=== PATIENT | male | born 1970 | race Caucasian/White ===

== ENCOUNTER → 2020-06-28 10:25 | Outpatient (BNVA) | payer OTHER, SELFPAY | PROVIDERS: PCP Hospitalist; Referring Provider Hospitalist; Visit Provider Orthopaedic Surgery | DX: M75.01 Adhesive capsulitis of right shoulder (principal) | CPT/HCPCS: 99212 ==

== ENCOUNTER 2020-07-13 10:00 | Outpatient (RCR) | payer OTHER, SELFPAY ==
--- NOTE | 2020-05-24 08:25 | MHC.PT.OD ---
[facility] [place] Office [place] Office [place] Office [address] Krystle Garcia [address] [phone] F: [phone] F: [phone] F: [phone] F: [phone] Physical Therapy Daily Note Diagnosis: Date of Surgery: Date of Evaluation: 03/22/20 Treatments to Date: 18 Cancellations to Date: No Shows to Date: Authorized Visits: 99 Insurance End Date: Precautions/ Contraindications:ADHESIVE CAPSULITIS Subjective: PATIENT REPORTS HAVING SORENESS AND FATIGUE TO RIGHT SHOULDER. PATIENT REPORTS INCREASED STIFFNESS TO RIGHT IN THE MORNING. Pain Score: 8 Pain Location: RIGHT SHOULDER Objective Flowsheet: Tests & Measures HYPOMBILITY TO RIGHT SHOULDER Exercises UBE (MODERATE, X10 MINUTES) PB WALK UPS 4 X 5 AT WALL RESISTED BAND ROWS DOUBLE AND SINGLE (YELLOW BAND 3X10) STANDING PULL DOWN (YELLOW BAND 6X5) RESISTED TRICEPS EXTENSIONS ( YELLOW BAND 6X5) PROM SHOULDER ALL DRIECTION WITH END RANGE STRETCH S/L ER 6X5 RIGHT GLENOHUMERAL JOINT MOBILIZATION GRADE 3-4 SUSTAIN AND OSC. INFERIOR GLIDES, A/P, P/A GRADE 3 SCAPULAR MOBS GRADE 2 A/P SUPINE STM LAT DORSI/ TERES GROUP Modalities Assessment: PATIENT PROGRESSED WITH RESISTED BAND EXERCISES TO INCREASED RECRUITMENT OF RIGHT SHOULDER GIRDLE THROUGH OUT NEW ROM. CONTINUATION WITH MANUAL THERAPY WARRANTED TO REDUCE ADHESION FORMATION AND MAINTAIN HUMERAL HEAD GLIDE. REVIEW OF STM FOR HEP WITH SPOUSES HELP. PATIENT TO CONTINUE WITH SKILLED PT INTERVENTION FOR 2X WEEK X 8 WEEKS TO ADDRESS INCREASE SHOULDER BIOMECHANICS, INCREASED AROM, IMPROVE ON STABLITY OF SHOULDER GIRDLE AND RETURN TO FUNCTIONAL MOVEMENT AND WORK OF RIGHT SHOULDER. PT Plan: CONTINUE WITH PROGRESSION OF JONT MOBILIZATION AND MANUAL THERAPY TO DECREASE ADHESION AND INCREASE FUNCTIONAL USE OF RIGHT UE WITH ADL'S. TE, MICHAEL, MAN, MODALITIES, DYNAMIC STABILITY, STM Discharge Today? No Short Term Goals: 1. DECREASE SLEEP DISTURBANCES BY 50% 2. INDEPENDENT WITH HEP 3.DECREASE SHOULDER GUADING BY 50% Reiki Practitioner Goals: 1. INCREASE MOBILITY TO RIGHT SHOULDER BY 40 DEGREES ALL DIRECTION 2.DECREASE PAIN TO 3/10 3. INCREASE RIGHT MMT TO 4/5 TO ASSIST WITH ADL'S 4. DECREASE MM SPASMS BY 75% TO RIGHT SHOULDER 5. INCREASE TOLERANCE TO LIFTING AND CARRYING TO 10 LBS
--- NOTE | 2020-07-13 11:54 | MHC.PT.OD ---
[facility] [place] Office [place] Office [place] Office [address] Krystle Garcia [address] [phone] F: [phone] F: [phone] F: [phone] F: [phone] Physical Therapy Daily Note Diagnosis: Bursitis of R shoulder Date of Surgery: Date of Evaluation: 03/22/20 Treatments to Date: 28 Cancellations to Date: 0 No Shows to Date: 0 Authorized Visits: 99 Insurance End Date: Precautions/ Contraindications:ADHESIVE CAPSULITIS Subjective: Pt noted to appear much more anxious today, verbalizing history of panic order; reports ongoing issues with constipation, resolved yesterday; reports wants a regular pattern expresses R shoulder is moving more than before, I can actually lift my arm. Verbalizing confidence with ability to complete HEP. Pain Score: 6 Pain Location: RIGHT SHOULDER Objective Flowsheet: Tests & Measures Flexion AROM 120, PROM 130 degrees Abduction 105 degrees, PROM 110 ER 35 degrees PROM 45 degrees IR 50 PROM degrees AARom IR standing L4 Exercises Krank cycle x 10 minutes backwards Reviewed HEP Issued blue band for home ROWS/ext x 15R each, standing AAROM cane flexion, AAROM cane scaption, AAROM cane ER, AAROM IR cane x 5R each. Extensive time spent with patient reviewing all of his previously issued HEP sheets; addressing questions pt had with home program. PROM end range all planes, Posterior/inferior GH mobs grade 3 sustained to tolerance Issued updated HEP sheets for patient to fill in gaps of HEP including: AAROM flexion with aide of opposite hand in supine, AAROM flexion via wall slides, AAROM flexion via table slides flex/scaption, AAROM cane scaption, AAROM cane ER, AAROM IR, SL open books stretch, threading needle stretch, ROWS/ext with TB, scap retraction, alternating UE flexion when walking Reviewed and addressed specific patient questions with program Modalities Assessment: Pt started physical therapy back on 03/22/2020, receiving 28 visits of therapy since that time. Sloan is expressing overall improvement in shoulder mobility since start of care. He verbalizes improved ability to lie on R shoulder and complete self care. He expresses increased emotional stressors in regards to living situation with 's mother which appears to be contributing factors of his anxiety and hx of panic disorder (he states). He has been issued a written HEP sheet and exhibits good>fair carryover. He has begun to plateau in his progress in regards to his ROM, he was seen by Dr. Cm who advised him to finish up this physical therapy. Although his ROM is not yet symmetrical to his opposite shoulder, he is able to navigate his ADLS and hygiene with better movement and is now able to sleep on his shoulder. He has weaned from use of NSAIDS as he also verbalizes hx gastritis and IBS which he feel medss have been exacerbating his bowel sx. He is scheduled to see his PCP Jigna Nevarez NP for routine appt on 07/27/2020. I do not believe he has a follow up with Dr. Cm in the future. He was educated/encouraged to phone therapy clinic with questions or concerns for HEP. Follow up with Jigna Nevarez NP on 07/27/2020. D/C Sloan to I HEP for his treatment of frozen shoulder at this time. He has realistic expectations of his recovery and was encouraged to stick with diligent written program daily (he presents with written HEP folder today and did not have questions as we reviewed program at length last session). He was encouraged to reach out to MD if he feels his shoulder mobility starts to regress. PT Plan: D/C to I HEP. Discharge Today? No Short Term Goals: 1. DECREASE SLEEP DISTURBANCES BY 50% related to shoulder (met, now able to sleep in SL) 2. INDEPENDENT WITH HEP 3.DECREASE SHOULDER GUADING BY 50% (met) Senior Ssis Developer Goals: 1. INCREASE MOBILITY TO RIGHT SHOULDER BY 40 see reeval DEGREES ALL DIRECTION 2.DECREASE PAIN TO 3/10 3. INCREASE RIGHT MMT TO 4/5 TO ASSIST WITH ADL'S 4. DECREASE MM SPASMS BY 75% TO RIGHT SHOULDER 5. INCREASE TOLERANCE TO LIFTING AND CARRYING TO 10 LBS Electronically signed by: Christiana Sahni, PT, DPT
== END 2020-09-16 09:31 | disposition other institution (70) ==
LOC: HO.PTWFD 10:00
PROVIDERS: PCP Hospitalist; Visit Provider Orthopaedic Surgery
DX: M75.51 Bursitis of right shoulder (principal)
CPT/HCPCS: 97110; 97140

== ENCOUNTER 2021-05-09 11:17 | Outpatient (REF) | payer OTHER, SELFPAY ==
[2021-05-09 13:54] LABS: Hematocrit 43.4 % (42-52); Mean Corpuscular HGB Conc 34.6 g/dl (31.0-36.0); Mean Corpuscular Hemoglobin 30.7 pg (27.0-33.0); Mean Corpuscular Volume 88.8 fL (80-98); Mean Platelet Volume 10.2 fL (9.4-12.4); Platelet Count 257 X10*3/uL (160-400); Red Blood Count 4.89 X10*6/uL (4.60-5.80); Red Cell Distribution Width 12.1 % (11.0-16.0); White Blood Count 6.7 X10*3/uL (4.8-10.8)
[2021-05-09 14:08] LABS: Appearance Urine CLEAR; Color Urine YELLOW; Glucose Urine UA NEG (NEG); Leukocyte Esterase Urine NEG (NEG); Nitrite Urine NEG (NEG); Urine Blood NEG (NEG); Urine Ketones NEG (NEG); Urine Protein NEG (NEG-TRACE)
[2021-05-09 15:02] LABS: Alanine Aminotransferase 44 U/L (0-40); Albumin Level 4.2 g/dL (3.5-5.0); Alkaline Phosphatase 108 U/L (39-117); Anion Gap 12 (12-20); Aspartate Amino Transferase 23 U/L (5-37); Bilirubin Total 0.6 mg/dL (0.0-1.0); Blood Urea Nitrogen 11 mg/dL (9-16); Calcium 9.1 mg/dL (8.4-10.2); Carbon Dioxide 28 mmol/L (22-29); Chloride 104 mmol/L (96-108); Cholesterol 209 mg/dL; Estimated Glomerular Filt Rate > 60; Glucose Fasting 92 mg/dL (60-99); HDL Cholesterol 42 mg/dL; LDL Cholesterol Calculated 149 mg/dl; Potassium 3.9 mmol/L (3.3-5.1); Sodium 140 mmol/L (135-145); Total Protein 7.1 g/dL (6.5-8.0); Triglycerides 93 mg/dL
[2021-05-09 15:04] LABS: Mucus Urine TRACE /LPF; RBC Urine 0 /HPF (0); Squamous Epithelial Cell Urine TRACE /LPF; WBC Urine 0 /HPF (0-4)
[2021-05-09 15:48] LABS: Prostate Specific Antigen Scr 0.27 ng/mL (<0.05-4.0)
== END 2021-05-09 11:18 | disposition home or self-care (01) ==
LOC: HO.HMGCLDS 11:17
PROVIDERS: PCP Internal Medicine; Visit Provider Internal Medicine
DX: Z00.00 Encounter for general adult medical examination without abnormal findings (principal); Z12.5 Encounter for screening for malignant neoplasm of prostate; F41.9 Anxiety disorder, unspecified
CPT/HCPCS: 36415; 80053; 80061; 81001; 84153; 85027

== ENCOUNTER → 2021-09-12 14:18 | Outpatient (BNVA) | payer OTHER, SELFPAY | PROVIDERS: PCP Internal Medicine; Referring Provider Internal Medicine; Visit Provider Nurse Practitioner Family | DX: Z12.11 Encounter for screening for malignant neoplasm of colon (principal); K21.9 Gastro-esophageal reflux disease without esophagitis | CPT/HCPCS: 99202 ==

== ENCOUNTER 2021-10-25 22:32 | Emergency (ER) | payer OTHER, SELFPAY ==
--- NOTE | ~2021-10-25 | CT_ITS ---
EXAMINATION: CT ABDOMEN AND PELVIS WITH CONTRAST CLINICAL INFORMATION: Mid abdominal pain, nausea/vomiting COMPARISON: None TECHNIQUE: Multidetector volumetric images were obtained from the superior aspect of the liver through the pubic symphysis following administration 85 mL of Omnipaque 350 intravenous contrast. Sagittal and coronal reformatted images were obtained on the technologist's workstation. Oral contrast: No This CT examination was performed using dose optimization techniques as appropriate, variously including the following: *Automated exposure control *Adjustment of mA and/or kV according to patient size (this includes techniques or standardized protocols for targeted exams where dose is matched to indication/reason for exam; i.e. extremities or head) *Use of iterative reconstruction technique DLP: 631 mGy-cm FINDINGS: LUNG BASES: The visualized lung bases are unremarkable. LIVER, GALLBLADDER, AND BILIARY TREE: The liver is normal in size, shape, and attenuation. No focal hepatic lesion or biliary ductal dilatation is present. The gallbladder is unremarkable with no evidence of radiopaque gallstones, gallbladder wall thickening, or obvious pericholecystic inflammatory changes. PANCREAS: Unremarkable. SPLEEN: Unremarkable. ADRENAL GLANDS: Unremarkable. KIDNEYS AND URETERS: Bilateral nephrograms are symmetric. No hydronephrosis or obstructing calculus identified. BLADDER: Unremarkable. GASTROINTESTINAL TRACT: No evidence of bowel obstruction or significant wall thickening. The appendix is unremarkable. No free fluid or free air is seen. ABDOMINAL WALL: No significant hernia is appreciated. LYMPH NODES: Normal. VASCULAR: Unremarkable. PELVIC VISCERA: Unremarkable. OSSEOUS STRUCTURES: Multilevel endplate osteophytes are present in the lower thoracic and upper lumbar spine. CT/CT abdomen pelvis w con IMPRESSION: No acute findings identified in the abdomen/pelvis. Fleischner guidelines were followed.
[2021-10-25 23:28] VITALS: BP 116/80; PULSE 130; RESP 22; TEMP 36.9; O2SAT 95; BMI 26.6
[2021-10-25] MEDS: Ondansetron ODT 4 MG TAB.RAPDIS TRANSLINGU (23:44)
[2021-10-25 23:52] LABS: Basophils Percent Auto 0.4 % (0-2); Eosinophils Percent Auto 0.2 % (0-4); Hematocrit 45.4 % (42.0-52.0); Hemoglobin 15.4 g/dl (14.0-18.0); Imm Gran Abs Auto 0.03 X10*3/uL (0.00-0.03); Imm Gran Pct Auto 0.3 % (0.0-0.4); Lymphocytes Absolute Auto 0.5 X10*3/uL (1.2-4.9); Lymphocytes Percent Auto 5.1 % (20-40); MANUAL DIFF FLAG NO; Mean Corpuscular HGB Conc 33.9 g/dl (31.0-36.0); Mean Corpuscular Hemoglobin 29.8 pg (27.0-33.0); Mean Corpuscular Volume 87.8 fL (80.0-98.0); Mean Platelet Volume 9.2 fL (9.4-12.4); Monocytes Absolute Auto 0.7 X10*3/uL (0.1-1.2); Monocytes Percent Auto 6.5 % (2-11); Neutrophils Absolute Auto 9.3 x10*3/uL (2.0-8.3); Neutrophils Percent Auto 87.5 % (45-73); Platelet Count 201 X10*3/uL (160-400); Red Blood Count 5.17 X10*6/uL (4.60-5.80); White Blood Count 10.7 X10*3/uL (4.8-10.8)
--- NOTE | 2021-10-26 00:25 | ECG_ITS ---
Test Reason : TACHYCARDIA Blood Pressure : / mmHG Vent. Rate : 109 BPM Atrial Rate : 109 BPM P-R Int : 156 ms QRS Dur : 074 ms QT Int : 334 ms P-R-T Axes : 046 081 031 degrees QTc Int : 449 ms Sinus tachycardia Otherwise normal ECG No previous ECGs available Referred By: Generic ED Physician Electronically Signed By:PARVIN GARNER MD
[2021-10-26 00:26] LABS: Alanine Aminotransferase 57 U/L (0-40); Albumin Level 4.2 g/dL (3.5-5.0); Alkaline Phosphatase 106 U/L (39-117); Anion Gap 12 (12-20); Aspartate Amino Transferase 38 U/L (5-37); Bilirubin Direct 0.4 mg/dL (0.0-0.5); Bilirubin Total 1.2 mg/dL (0.0-1.0); Blood Urea Nitrogen 19 mg/dL (9-16); Calcium 9.2 mg/dL (8.4-10.2); Carbon Dioxide 24 mmol/L (22-29); Chloride 106 mmol/L (96-108); Creatinine Clr Calc Pharmacy 122.2; Estimated Glomerular Filt Rate > 60; Glucose Random 127 mg/dL (60-115); Lipase 17 U/L (8-78); Potassium 4.2 mmol/L (3.3-5.1); Sodium 138 mmol/L (135-145); Total Protein 7.5 g/dL (6.5-8.0)
[2021-10-26 00:58] VITALS: BP 116/76; PULSE 106; RESP 20; O2SAT 98
[2021-10-26 01:31] LABS: COVID-19 Test Negative (Negative)
[2021-10-26 01:41] LABS: Appearance Urine CLEAR; Color Urine YELLOW; Glucose Urine UA NEG (NEG); Leukocyte Esterase Urine NEG (NEG); Nitrite Urine NEG (NEG); Specific Gravity - Urine 1.025 (1.005-1.025); UACC Culture Trigger NO; Urine Blood TRACE (NEG); Urine Ketones 40 MG/DL (NEG); Urine Protein NEG (NEG-TRACE)
[2021-10-26 02:09] LABS: Bacteria Urine 1+ /LPF; Mucus Urine 2+ /LPF; Squamous Epithelial Cell Urine 1+ /LPF
--- NOTE | 2021-10-26 02:19 | ED.NAVMDI ---
HPI - Nausea/Vomiting/Diarrhea General Chief complaint: Nausea/Vomiting/Diarrhea Stated complaint: active vomiting, abd pain, difficulty breathing Time Seen by Provider: 10/26/21 02:19 Source: patient Mode of arrival: ambulatory History of Present Illness HPI Narrative: 51-year-old male who presents with multiple episodes of nausea and vomiting after eating dinner with his and he states that she ate same thing. Otherwise, he denies any fever, chills, diarrhea, shortness of breath, chest pain/palpitations and states that after the vomiting started he experience some mid abdominal discomfort. Related Data Home Medications Medication Instructions Recorded Confirmed ibuprofen 800 mg tablet 800 mg PO TID 05/25/20 05/09/21 Previous Rx's Medication Instructions Recorded fluticasone propionate 50 1 spray INTRANASAL DAILY 30 Days 05/09/21 mcg/actuation nasal #16 g spray,suspension paroxetine HCl 20 mg tablet (Paxil) 20 mg PO DAILY #90 tab 05/09/21 bisacodyl 5 mg tablet,delayed 10 mg PO ONCE 1 Days #2 tab 09/12/21 release (Dulcolax (bisacodyl)) polyethylene glycol 3350 17 238 g PO ONCE #238 g 09/12/21 gram/dose oral powder (Miralax) pantoprazole 40 mg tablet,delayed 40 mg PO DAILY 90 Days #90 tab 09/27/21 release ondansetron 4 mg disintegrating 4 mg PO Q8H PRN #7 tab 10/26/21 tablet sucralfate 100 mg/mL oral 10 ml PO BID #420 ml 10/26/21 suspension (Carafate) Allergies Allergy/AdvReac Type Severity Reaction Status Date / Time No Known Allergies Allergy Verified 09/12/21 14:30 [No Known Allergies*] Review of Systems Review of Systems: Pertinent positives and negatives as stated in HPI 10 point review of systems is otherwise negative. [facility] Past Medical History Source: nursing notes reviewed Medical History Adhesive capsulitis of right shoulder Annual physical exam Anxiety Dyslexia Seasonal allergies Surgical History History of endoscopy Family History Family History Father NORM (obstructive sleep apnea) Mother Diabetes Family/Other Cancer Maternal Aunt Breast cancer Social History Social History Household Members Other:: , disable learing disabilty Housing: House Unable to assess alcohol history related to: Unknown Alcohol intake: never Patient Tobacco Use Status: Never used Tobacco e-Cigarette/Vaping Use: Never Used Advance Directives: No Advance Directives Information Provided: Yes Current occupational status: unemployed Current occupation: Right Handed Physical Exam Vital Signs: Vital Signs: Last Vital Signs Temp 98.5 F 10/25/21 23:28 Pulse 107 H 10/26/21 04:05 Resp 18 10/26/21 04:05 BP 118/79 10/26/21 04:05 Pulse Ox 97 10/26/21 04:05 BMI result Body Mass Index 26.6 VITAL SIGNS: Reviewed. GENERAL: Well developed, well nourished, in no acute distress. HEAD: Normocephalic/atraumatic EYES: PERRLA, EOMI EARS: Ext canals without abnormality OROPHARYNX: no oral lesions noted, posterior pharynx clear LUNGS: Normal breath sounds. No adventitious sounds or accessory muscle use. SpO2<97> CARDIOVASCULAR: Regular rate and rhythm without noted murmurs ABDOMEN: Soft, mild tenderness to palpation at mid abdomen without rebound non-distended with bowel sounds. MUSCULOSKELETAL: No tenderness, deformities, or effusions noted on gross inspection. EXTREMITIES: No cyanosis, clubbing or edema. SKIN: Inspection of the skin reveals no rashes NEUROLOGIC: Alert and oriented x 4. Strength and sensation to light touch were grossly intact x 4. Course Course Course Narrative: 51-year-old male with history and clinical presentation consistent with possible gastritis and/or mild food contamination. Patient received antiemetic as well as a GI cocktail afterwards and on review of all investigations there are no acute findings to better explain patient's presentation. On re-evaluation he is currently asymptomatic and able to tolerate water at this time. I reviewed all results and findings with him at bedside and he is otherwise stable for discharge to home. MDM - Nausea/Vomiting/Diarrhea Lab Data Result diagrams: 10/25/21 23:42 10/25/21 23:42 Labs: Lab Results 10/25/21 10/25/21 10/26/21 Range/Units 23:42 23:42 01:04 WBC 10.7 (4.8-10.8) X10*3/uL RBC 5.17 (4.60-5.80) X10*6/uL Hgb 15.4 (14.0-18.0) g/dl Hct 45.4 (42.0-52.0) % MCV 87.8 (80.0-98.0) fL MCH 29.8 (27.0-33.0) pg MCHC 33.9 (31.0-36.0) g/dl RDW 12.0 (11.0-16.0) % Plt Count 201 (160-400) X10*3/uL MPV 9.2 L (9.4-12.4) fL Immature Gran % (Auto) 0.3 (0.0-0.4) % Neut % (Auto) 87.5 H (45-73) % Lymph % (Auto) 5.1 L (20-40) % [place] % (Auto) 6.5 (2-11) % Eos % (Auto) 0.2 (0-4) % Baso % (Auto) 0.4 (0-2) % Lymph # (Auto) 0.5 L (1.2-4.9) X10*3/uL [place] # (Auto) 0.7 (0.1-1.2) X10*3/uL Eos # (Auto) 0.0 (0.0-0.4) X10*3/uL Baso # (Auto) 0.0 (0.0-0.2) X10*3/uL Abs Immat Gran (auto) 0.03 (0.00-0.03) X10*3/uL Absolute Neuts (auto) 9.3 H (2.0-8.3) x10*3/uL Absolute Nucleated RBC 0.000 (0.0-0.012) X10*3/uL Nucleated RBC % (auto) 0.0 (0.0-0.2) /100WBC Sodium 138 (135-145) mmol/L Potassium 4.2 (3.3-5.1) mmol/L Chloride 106 (96-108) mmol/L Carbon Dioxide 24 (22-29) mmol/L Anion Gap 12 (12-20) BUN 19 H (9-16) mg/dL Creatinine 0.77 (0.5-1.4) mg/dL Estim Creat Clear Calc 122.2 Estimated GFR > 60 Random Glucose 127 H (60-115) mg/dL Calcium 9.2 (8.4-10.2) mg/dL Total Bilirubin 1.2 H (0.0-1.0) mg/dL Direct Bilirubin 0.4 (0.0-0.5) mg/dL AST 38 H D (5-37) U/L ALT 57 H (0-40) U/L Alkaline Phosphatase 106 (39-117) U/L Total Protein 7.5 (6.5-8.0) g/dL Albumin 4.2 (3.5-5.0) g/dL Lipase 17 (8-78) U/L Urine Color Urine Appearance Urine pH (5.0-8.0) Ur Specific [place] (1.005-1.025) Urine Protein (NEG-TRACE) MG/DL Urine Glucose (UA) (NEG) MG/DL Urine Ketones (NEG) MG/DL Urine Blood (NEG) Urine Nitrite (NEG) Ur Leukocyte Esterase (NEG) Urine RBC (0) /HPF Urine WBC (0-4) /HPF Ur Squamous Epith Cells /LPF Urine Bacteria /LPF Urine Mucus /LPF COVID-19 (AI) Negative (Negative) COVID-19 Clin Com See Note 10/26/21 Range/Units 01:35 WBC (4.8-10.8) X10*3/uL RBC (4.60-5.80) X10*6/uL Hgb (14.0-18.0) g/dl Hct (42.0-52.0) % MCV (80.0-98.0) fL MCH (27.0-33.0) pg MCHC (31.0-36.0) g/dl RDW (11.0-16.0) % Plt Count (160-400) X10*3/uL MPV (9.4-12.4) fL Immature Gran % (Auto) (0.0-0.4) % Neut % (Auto) (45-73) % Lymph % (Auto) (20-40) % [place] % (Auto) (2-11) % Eos % (Auto) (0-4) % Baso % (Auto) (0-2) % Lymph # (Auto) (1.2-4.9) X10*3/uL [place] # (Auto) (0.1-1.2) X10*3/uL Eos # (Auto) (0.0-0.4) X10*3/uL Baso # (Auto) (0.0-0.2) X10*3/uL Abs Immat Gran (auto) (0.00-0.03) X10*3/uL Absolute Neuts (auto) (2.0-8.3) x10*3/uL Absolute Nucleated RBC (0.0-0.012) X10*3/uL Nucleated RBC % (auto) (0.0-0.2) /100WBC Sodium (135-145) mmol/L Potassium (3.3-5.1) mmol/L Chloride (96-108) mmol/L Carbon Dioxide (22-29) mmol/L Anion Gap (12-20) BUN (9-16) mg/dL Creatinine (0.5-1.4) mg/dL Estim Creat Clear Calc Estimated GFR Random Glucose (60-115) mg/dL Calcium (8.4-10.2) mg/dL Total Bilirubin (0.0-1.0) mg/dL Direct Bilirubin (0.0-0.5) mg/dL AST (5-37) U/L ALT (0-40) U/L Alkaline Phosphatase (39-117) U/L Total Protein (6.5-8.0) g/dL Albumin (3.5-5.0) g/dL Lipase (8-78) U/L Urine Color YELLOW Urine Appearance CLEAR Urine pH 6.0 (5.0-8.0) Ur Specific [place] 1.025 (1.005-1.025) Urine Protein NEG (NEG-TRACE) MG/DL Urine Glucose (UA) NEG (NEG) MG/DL Urine Ketones 40 (NEG) MG/DL Urine Blood TRACE (NEG) Urine Nitrite NEG (NEG) Ur Leukocyte Esterase NEG (NEG) Urine RBC 1-4 (0) /HPF Urine WBC 1-4 (0-4) /HPF Ur Squamous Epith Cells 1+ /LPF Urine Bacteria 1+ /LPF Urine Mucus 2+ /LPF COVID-19 (AI) (Negative) COVID-19 Clin Com Discharge Plan Discharge Clinical Impression: GERD without esophagitis Patient Disposition: Home, Self-Care Instructions: Diet for Stomach Ulcers and Gastritis (ED), Gastroesophageal Reflux Disease (ED) Additional Instructions: 1. Resume all home medications as prescribed. Recommend that you avoid any ibuprofen/Motrin at this time as it may irritate your stomach further. 2. You have been provided with a prescription for medication to sooth your stomach as well as medication to control your nausea. 3. When possible please follow-up with your primary care provider. Return to the ER for worsening symptoms. Prescriptions: New sucralfate [Carafate] 100 mg/mL suspension 10 ml PO BID Qty: 420 0RF ondansetron 4 mg tablet,disintegrating 4 mg PO Q8H PRN (Reason: nausea and vomiting) Qty: 7 0RF No Action pantoprazole 40 mg tablet,delayed release (DR/EC) 40 mg PO DAILY 90 Days Qty: 90 2RF ibuprofen 800 mg tablet 800 mg PO TID 0RF paroxetine HCl [Paxil] 20 mg tablet 20 mg PO DAILY Qty: 90 0RF fluticasone propionate 50 mcg/actuation spray,suspension 1 spray intranasal DAILY 30 Days Qty: 16 3RF Rx Instructions: administer into each nostril bisacodyl [Dulcolax (bisacodyl)] 5 mg tablet,delayed release (DR/EC) 10 mg PO ONCE 1 Days Qty: 2 0RF Rx Instructions: take 2 tabs at noon the day before your colonoscopy polyethylene glycol 3350 [Miralax] 17 gram/dose powder 238 g PO ONCE Qty: 238 0RF Rx Instructions: As directed by gastroenterology department at [facility]
--- NOTE | 2021-10-26 02:43 | PC.NURSE ---
Pt alert and oriented x4, calm and cooperative. Pt states nausea intermittently, and reflux feeling. Pt remains NPO. Resting in stretcher at this time, will continue to monitor.
[2021-10-26] MEDS: iohexoL 350 MG/ML 100 ML INFUS..BTL 85 ML IV (03:17)
[2021-10-26] MEDS: Magnesium Hydrox/Alum Hydrox 30 ML ORAL.SUSP PO (04:04)
[2021-10-26] MEDS: Lidocaine HCl Viscous 2 % 15 ML SOLUTION 10 ML MUCOUS MEM (04:04)
[2021-10-26 04:05] VITALS: BP 118/79; PULSE 107; RESP 18; O2SAT 97
--- NOTE | 2021-10-26 04:10 | PC.NURSE ---
Pt medicated per MAR Pt tolerating well Will continue to monitor
--- NOTE | 2021-10-26 04:44 | PC.NURSE ---
Pt given water Pt tolerating well No vomiting noted Will continue to monitor
[2021-10-26] MEDS: Sucralfate Oral Suspension 1 GM/10 ML ORAL.SUSP PO (04:59)
== END 2021-10-26 05:13 | disposition home or self-care (01) ==
PROVIDERS: Emergency Provider Student in an Organized Health Care Education/Training Program
DX: K21.9 Gastro-esophageal reflux disease without esophagitis (principal); Z20.822 Contact with and (suspected) exposure to COVID-19; R11.2 Nausea with vomiting, unspecified
CPT/HCPCS: 36415; 74177; 80048; 80076; 81001; 83690; 85025; 87635; 93005; 99284; Q9967

== ENCOUNTER 2021-12-14 13:51 | Emergency (ER) | payer OTHER, SELFPAY ==
--- NOTE | 2021-12-14 | ECG_ITS ---
Test Reason : abnormal ekg Blood Pressure : / mmHG Vent. Rate : 113 BPM Atrial Rate : 113 BPM P-R Int : 142 ms QRS Dur : 082 ms QT Int : 314 ms P-R-T Axes : 048 079 023 degrees QTc Int : 430 ms Sinus tachycardia Otherwise normal ECG When compared with ECG of 26-OCT-2021 00:50, No significant change was found Referred By: Generic ED Physician Electronically Signed By:JEANETH TITUS
--- NOTE | ~2021-12-14 | XR_ITS ---
EXAMINATION: XR CHEST CLINICAL INFORMATION: Cough. COMPARISON: Chest radiograph dated from 05/05/2017. TECHNIQUE: 2 views of the chest were obtained. FINDINGS: Stable appearance of the cardiomediastinal silhouette. Increased interstitial markings. No focal airspace opacities, pleural effusions or pneumothorax. No acute osseous abnormalities. XR/XR chest 2V IMPRESSION: Nonspecific interstitial thickening which could be associated with asthma, bronchitis, reactive airways disease or atypical infections.
[2021-12-14 13:54] VITALS: BP 128/75; PULSE 120; RESP 18; TEMP 37.7; O2SAT 99; BMI 25.1
[2021-12-14 14:16] LABS: MANUAL DIFF FLAG NO
[2021-12-14 14:30] LABS: Anion Gap 11 (12-20); Blood Urea Nitrogen 11 mg/dL (9-16); Calcium 9.1 mg/dL (8.4-10.2); Carbon Dioxide 26 mmol/L (22-29); Chloride 103 mmol/L (96-108); Creatinine Clr Calc Pharmacy 120.6; Estimated Glomerular Filt Rate > 60; Glucose Random 111 mg/dL (60-115); Sodium 136 mmol/L (135-145)
[2021-12-14 14:33] LABS: Basophils Percent Auto 0.5 % (0-2); Eosinophils Absolute Auto 0.1 X10*3/uL (0.0-0.4); Eosinophils Percent Auto 0.7 % (0-4); Hematocrit 41.1 % (42.0-52.0); Hemoglobin 14.1 g/dl (14.0-18.0); Imm Gran Abs Auto 0.03 X10*3/uL (0.00-0.03); Imm Gran Pct Auto 0.4 % (0.0-0.4); Lymphocytes Absolute Auto 0.4 X10*3/uL (1.2-4.9); Lymphocytes Percent Auto 5.6 % (20-40); Mean Corpuscular HGB Conc 34.3 g/dl (31.0-36.0); Mean Corpuscular Hemoglobin 29.7 pg (27.0-33.0); Mean Corpuscular Volume 86.5 fL (80.0-98.0); Mean Platelet Volume 9.5 fL (9.4-12.4); Monocytes Absolute Auto 0.8 X10*3/uL (0.1-1.2); Monocytes Percent Auto 10.2 % (2-11); Neutrophils Absolute Auto 6.3 x10*3/uL (2.0-8.3); Neutrophils Percent Auto 82.6 % (45-73); Platelet Count 217 X10*3/uL (160-400); Red Blood Count 4.75 X10*6/uL (4.60-5.80); Red Cell Distribution Width 12.1 % (11.0-16.0); White Blood Count 7.6 X10*3/uL (4.8-10.8)
[2021-12-14 14:36] LABS: Troponin-I High Sensitivity < 3.5 ng/L (<3.5-35.0)
--- NOTE | 2021-12-14 19:54 | ED.GENADULT ---
HPI - General Adult General Chief complaint: General Medical Stated complaint: abnormal ekg-sent from urgent care Time Seen by Provider: 12/14/21 21:36 Source: patient Mode of arrival: ambulatory Limitations: no limitations History of Present Illness HPI narrative: 51-year-old male presents to urgent care for evaluation of tachycardia. Onset (ago): day(s) (1) Location: chest Radiation: non-radiation Severity: moderate Severity scale (1-10): 5 Quality: aching Pain Consistency: constant Relieving factors: none Exacerbating factors: movement Associated symptoms: cough, fever/chills, headaches and malaise Treatments prior to arrival: none Related Data Home Medications Medication Instructions Recorded Confirmed ibuprofen 800 mg tablet 800 mg PO TID 05/25/20 12/14/21 Previous Rx's Medication Instructions Recorded fluticasone propionate 50 1 spray INTRANASAL DAILY 30 Days 05/09/21 mcg/actuation nasal #16 g spray,suspension paroxetine HCl 20 mg tablet (Paxil) 20 mg PO DAILY #90 tab 05/09/21 bisacodyl 5 mg tablet,delayed 10 mg PO ONCE 1 Days #2 tab 09/12/21 release (Dulcolax (bisacodyl)) polyethylene glycol 3350 17 238 g PO ONCE #238 g 09/12/21 gram/dose oral powder (Miralax) pantoprazole 40 mg tablet,delayed 40 mg PO DAILY 90 Days #90 tab 09/27/21 release ondansetron 4 mg disintegrating 4 mg PO Q8H PRN #7 tab 10/26/21 tablet sucralfate 100 mg/mL oral 10 ml PO BID #420 ml 10/26/21 suspension (Carafate) Allergies Allergy/AdvReac Type Severity Reaction Status Date / Time No Known Allergies Allergy Verified 12/14/21 13:10 [No Known Allergies*] Review of Systems Review of Systems: Constitutional: No Weight loss, No Fever, No Chills, No Night Sweats, positive Fatigue, positive Malaise ENT/Mouth: No Hearing loss, No Ear Pain, No Nasal Congestion, No Sinus Pain, No Hoarseness, No sore throat, No Rhinorrhea, No Swallowing Difficulty Eyes: No Eye Pain, No Swelling, No Redness, No Foreign Body, No Discharge, No Vision Changes Cardiovascular: Positive Chest Pain, no SOB, no Dyspnea on Exertion, No Orthopnea, No Edema, positive Palpitations Respiratory: Positive Cough, No Sputum, No Wheezing, No Smoke Exposure, No Dyspnea Gastrointestinal: No Nausea, No Vomiting, No Diarrhea, No abdominal Pain, No Hematochezia, No Melena Genitourinary: No irregular bleeding, No Dysuria, No Urinary Frequency, No Hematuria, No Urinary Incontinence, No Urgency, No Flank Pain, No Urinary Flow Changes, No Hesitancy Musculoskeletal: No joint pain, No Myalgias, No Joint Swelling Skin: No Skin Lesions, No rash Neuro: No Weakness, No Numbness, No Paresthesias, No Loss of Consciousness, No Dizziness, No Headache Psych: No Anxiety/Panic, No Depression, No SI/HI/AH/VH Heme/Lymph: No Bruising, No Bleeding,No Lymphadenopathy Endocrine: No Polyuria, No Polydipsia, No Temperature Intolerance Yes all other systems are reviewed and are negative [facility] Past Medical History Attestation statement: The following information was validated with the patient. Source: old records reviewed Medical History Adhesive capsulitis of right shoulder Annual physical exam Anxiety Dyslexia Gastroenteritis GERD (gastroesophageal reflux disease) Seasonal allergies Upper respiratory infection Surgical History History of endoscopy Family History Family History Father NORM (obstructive sleep apnea) Mother Diabetes Family/Other Cancer Maternal Aunt Breast cancer Social History Social History Household Members Other:: , disable learing disabilty Housing: House Unable to assess alcohol history related to: Unknown Alcohol intake: never Patient Tobacco Use Status: Never used Tobacco e-Cigarette/Vaping Use: Never Used Advance Directives: No Advance Directives Information Provided: Yes Current occupational status: unemployed Current occupation: Right Handed Physical Exam ED Vital Signs: Vital Signs - 24 hr 12/14/21 13:54 12/14/21 20:07 Temperature 99.8 F 99.0 F Pulse Rate 120 H 103 H Respiratory Rate 18 20 Blood Pressure 128/75 110/76 Pulse Oximetry 99 98 BMI result Body Mass Index 25.1 Appearance: Alert. Oriented X3. Mild distress. Eyes: Pupils equal, round and reactive to light. Sclera nonicteric. ENT: Pharynx normal. Moist mucous membranes. Neck: Normal inspection. Neck supple. CVS: Tachycardic heart rate and rhythm. Apical pulse good pulses to extremities. Respiratory: No respiratory distress. Breath sounds normal. Cough noted. Abdomen: Soft and nontender. Skin: Skin warm and dry. Normal skin color. Normal skin turgor. Extremities: No lower extremity edema. Gait well-balanced well coordinated Neuro: No motor deficit. No sensory deficit. Cranial nerves 2-12 intact Course Course Course Narrative: 51-year-old male presents from urgent care to be evaluated for tachycardia. Does have a cough and states to have some malaise and chills. Will order influenza. EKG shows tachycardia without any ST elevation or depression, troponins are negative. Lab values are unremarkable. 21:26 influenza is positive. Will discharge home with supportive measures. Patient verbalized understanding of and agrees to plan of care. Understands signs and symptoms indicating need for emergent intervention Medical Decision Making Differential Diagnosis Differential Diagnosis: Tachycardia, pneumonia, influenza, dehydration Medical Records Medical records reviewed: Yes I reviewed the patient's medical records. Lab Data Lab results reviewed: Yes I reviewed the patient's lab results. Result diagrams: 12/14/21 14:10 12/14/21 14:10 Labs: Lab Results 12/14/21 12/14/21 12/14/21 Range/Units 14:10 14:10 14:10 WBC 7.6 (4.8-10.8) X10*3/uL RBC 4.75 (4.60-5.80) X10*6/uL Hgb 14.1 (14.0-18.0) g/dl Hct 41.1 L (42.0-52.0) % MCV 86.5 (80.0-98.0) fL MCH 29.7 (27.0-33.0) pg MCHC 34.3 (31.0-36.0) g/dl RDW 12.1 (11.0-16.0) % Plt Count 217 (160-400) X10*3/uL MPV 9.5 (9.4-12.4) fL Immature Gran % (Auto) 0.4 (0.0-0.4) % Neut % (Auto) 82.6 H (45-73) % Lymph % (Auto) 5.6 L (20-40) % Gooding % (Auto) 10.2 (2-11) % Eos % (Auto) 0.7 (0-4) % Baso % (Auto) 0.5 (0-2) % Lymph # (Auto) 0.4 L (1.2-4.9) X10*3/uL Gooding # (Auto) 0.8 (0.1-1.2) X10*3/uL Eos # (Auto) 0.1 (0.0-0.4) X10*3/uL Baso # (Auto) 0.0 (0.0-0.2) X10*3/uL Abs Immat Gran (auto) 0.03 (0.00-0.03) X10*3/uL Absolute Neuts (auto) 6.3 (2.0-8.3) x10*3/uL Absolute Nucleated RBC 0.000 (0.0-0.012) X10*3/uL Nucleated RBC % (auto) 0.0 (0.0-0.2) /100WBC Sodium 136 (135-145) mmol/L Potassium 4.0 (3.3-5.1) mmol/L Chloride 103 (96-108) mmol/L Carbon Dioxide 26 (22-29) mmol/L Anion Gap 11 L (12-20) BUN 11 (9-16) mg/dL Creatinine 0.78 (0.5-1.4) mg/dL Estim Creat Clear Calc 120.6 Estimated GFR > 60 Random Glucose 111 (60-115) mg/dL Calcium 9.1 (8.4-10.2) mg/dL Troponin I High Sens < 3.5 (<3.5-35.0) ng/L Influenza Type A (PCR) (Negative) Influenza Type B (PCR) (Negative) RSV RNA Qual (PCR) (Negative) SARS-CoV-2 RNA (RT-PCR) (Negative) 12/14/21 Range/Units 20:35 WBC (4.8-10.8) X10*3/uL RBC (4.60-5.80) X10*6/uL Hgb (14.0-18.0) g/dl Hct (42.0-52.0) % MCV (80.0-98.0) fL MCH (27.0-33.0) pg MCHC (31.0-36.0) g/dl RDW (11.0-16.0) % Plt Count (160-400) X10*3/uL MPV (9.4-12.4) fL Immature Gran % (Auto) (0.0-0.4) % Neut % (Auto) (45-73) % Lymph % (Auto) (20-40) % Gooding % (Auto) (2-11) % Eos % (Auto) (0-4) % Baso % (Auto) (0-2) % Lymph # (Auto) (1.2-4.9) X10*3/uL Gooding # (Auto) (0.1-1.2) X10*3/uL Eos # (Auto) (0.0-0.4) X10*3/uL Baso # (Auto) (0.0-0.2) X10*3/uL Abs Immat Gran (auto) (0.00-0.03) X10*3/uL Absolute Neuts (auto) (2.0-8.3) x10*3/uL Absolute Nucleated RBC (0.0-0.012) X10*3/uL Nucleated RBC % (auto) (0.0-0.2) /100WBC Sodium (135-145) mmol/L Potassium (3.3-5.1) mmol/L Chloride (96-108) mmol/L Carbon Dioxide (22-29) mmol/L Anion Gap (12-20) BUN (9-16) mg/dL Creatinine (0.5-1.4) mg/dL Estim Creat Clear Calc Estimated GFR Random Glucose (60-115) mg/dL Calcium (8.4-10.2) mg/dL Troponin I High Sens (<3.5-35.0) ng/L Influenza Type A (PCR) POSITIVE A (Negative) Influenza Type B (PCR) NEGATIVE (Negative) RSV RNA Qual (PCR) NEGATIVE (Negative) SARS-CoV-2 RNA (RT-PCR) NEGATIVE (Negative) Imaging Data Chest x-ray: Attestation: I personally reviewed and interpreted this imaging study as follows: Radiologist's impression: EXAMINATION: XR CHEST CLINICAL INFORMATION: Cough. COMPARISON: Chest radiograph dated from 05/05/2017. TECHNIQUE: 2 views of the chest were obtained. FINDINGS: Stable appearance of the cardiomediastinal silhouette. Increased interstitial markings. No focal airspace opacities, pleural effusions or pneumothorax. No acute osseous abnormalities. XR/XR chest 2V IMPRESSION: Nonspecific interstitial thickening which could be associated with asthma, bronchitis, reactive airways disease or atypical infections. ECG Data Attestation: I personally reviewed and interpreted this ECG as follows: Prior ECG tracings: available for review Interpretation: Vent. rate 113 BPM LA interval 142 ms QRS duration 82 ms QT/QTc 314/430 ms P-R-T axes 48 79 23 Sinus tachycardia Otherwise normal ECG When compared with ECG of 26-OCT-2021 00:50, No significant change was found 14-DEC-2021 14:00:07 Discharge Plan Discharge Clinical Impression: Influenza A Patient Disposition: Home, Self-Care Instructions: Influenza (ED) Additional Instructions: You were evaluated for tachycardia and cough. Your influenza test is positive for influenza A. Please alternate Tylenol 650 mg every 6 hours and Motrin 600 mg every 6 hours as needed for fever and pain management. Write down what time you take these medications to prevent accidental overdose. Please follow-up with primary care physician later this week. Thank you for choosing this emergency department for evaluation. Please follow-up with primary care physician as needed. Return to the emergency department for any new, concerning, or worsening symptoms. Prescriptions: No Action pantoprazole 40 mg tablet,delayed release (DR/EC) 40 mg PO DAILY 90 Days Qty: 90 2RF sucralfate [Carafate] 100 mg/mL suspension 10 ml PO BID Qty: 420 0RF ondansetron 4 mg tablet,disintegrating 4 mg PO Q8H PRN (Reason: nausea and vomiting) Qty: 7 0RF ibuprofen 800 mg tablet 800 mg PO TID 0RF paroxetine HCl [Paxil] 20 mg tablet 20 mg PO DAILY Qty: 90 0RF fluticasone propionate 50 mcg/actuation spray,suspension 1 spray intranasal DAILY 30 Days Qty: 16 3RF Rx Instructions: administer into each nostril bisacodyl [Dulcolax (bisacodyl)] 5 mg tablet,delayed release (DR/EC) 10 mg PO ONCE 1 Days Qty: 2 0RF Rx Instructions: take 2 tabs at noon the day before your colonoscopy polyethylene glycol 3350 [Miralax] 17 gram/dose powder 238 g PO ONCE Qty: 238 0RF Rx Instructions: As directed by gastroenterology department at [facility] Stand Alone Forms: Work/School Release Interventions: ED Discharge Assessment Last Done: 12/14/21 21:53 Discharge Date/Time: 12/14/21 21:53
[2021-12-14 20:07] VITALS: BP 110/76; PULSE 103; RESP 20; TEMP 37.2; O2SAT 98
[2021-12-14] MEDS: 0.9 % Sodium Chloride 1,000 ML 999 ML IVCONT (20:16)
[2021-12-14 21:17] LABS: Influenza A PCR POSITIVE (Negative); Influenza B PCR NEGATIVE (Negative); Resp Syncy Virus RNA Qual PCR NEGATIVE (Negative); SARS COV2 PCR INHOUSE NEGATIVE (Negative)
[2021-12-14] MEDS: ondansetron HCL 4 MG/2 ML VIAL IVPUSH (21:41)
== END 2021-12-14 21:53 | disposition home or self-care (01) ==
PROVIDERS: Nurse Practitioner Family; Emergency Provider Emergency Medicine; PCP Internal Medicine
DX: J10.1 Influenza due to other identified influenza virus with other respiratory manifestations (principal); R94.31 Abnormal electrocardiogram [ECG] [EKG]; Z20.822 Contact with and (suspected) exposure to COVID-19
CPT/HCPCS: 0241U; 36415; 71046; 80048; 84484; 85025; 93005; 96361; 96374; 99284; J2405

== ENCOUNTER 2022-02-13 09:43 | Outpatient (REF) | payer OTHER, SELFPAY ==
[2022-02-13 11:35] LABS: MANUAL DIFF FLAG NO
[2022-02-13 11:41] LABS: Basophils Absolute Auto 0.1 X10*3/uL (0.0-0.2); Basophils Percent Auto 0.7 % (0-2); Eosinophils Absolute Auto 0.1 X10*3/uL (0.0-0.4); Eosinophils Percent Auto 0.9 % (0-4); Hematocrit 42.2 % (42.0-52.0); Imm Gran Abs Auto 0.02 X10*3/uL (0.00-0.03); Imm Gran Pct Auto 0.3 % (0.0-0.4); Lymphocytes Absolute Auto 2.4 X10*3/uL (1.2-4.9); Lymphocytes Percent Auto 35.8 % (20-40); Mean Corpuscular HGB Conc 33.2 g/dl (31.0-36.0); Mean Corpuscular Hemoglobin 29.5 pg (27.0-33.0); Mean Corpuscular Volume 88.8 fL (80.0-98.0); Monocytes Absolute Auto 0.6 X10*3/uL (0.1-1.2); Monocytes Percent Auto 8.5 % (2-11); Neutrophils Absolute Auto 3.6 x10*3/uL (2.0-8.3); Neutrophils Percent Auto 53.8 % (45-73); Platelet Count 216 X10*3/uL (160-400); Red Blood Count 4.75 X10*6/uL (4.60-5.80); Red Cell Distribution Width 12.6 % (11.0-16.0); White Blood Count 6.7 X10*3/uL (4.8-10.8)
[2022-02-13 12:32] LABS: PSA,Total (Free>4and<10) 0.27 ng/mL (0.00-4.00)
[2022-02-13 12:35] LABS: Alanine Aminotransferase 26 U/L (0-40); Albumin Level 4.1 g/dL (3.5-5.0); Alkaline Phosphatase 103 U/L (39-117); Anion Gap 11 (12-20); Aspartate Amino Transferase 19 U/L (5-37); Bilirubin Total 0.7 mg/dL (0.0-1.0); Blood Urea Nitrogen 12 mg/dL (9-16); Calcium 8.8 mg/dL (8.4-10.2); Carbon Dioxide 28 mmol/L (22-29); Chloride 104 mmol/L (96-108); Cholesterol 207 mg/dL; Estimated Glomerular Filt Rate > 60; Glucose Fasting 99 mg/dL (60-99); HDL Cholesterol 45 mg/dL; LDL Cholesterol Calculated 149 mg/dl; Potassium 3.9 mmol/L (3.3-5.1); Sodium 139 mmol/L (135-145); Total Protein 7.1 g/dL (6.5-8.0); Triglycerides 68 mg/dL
== END 2022-02-13 09:44 | disposition home or self-care (01) ==
LOC: HO.HMGCLDS 09:43
PROVIDERS: Visit Provider Internal Medicine
DX: Z00.00 Encounter for general adult medical examination without abnormal findings (principal); Z12.5 Encounter for screening for malignant neoplasm of prostate
CPT/HCPCS: 36415; 80053; 80061; 84153; 85025

== ENCOUNTER 2022-03-10 12:19 | Day surgery (SDC) | payer OTHER, SELFPAY ==
--- NOTE | 2022-03-09 13:19 | P.CONAN_ITS ---
Documented by User: Aviva Appiah NP 03/09/22 13:26 HPI - Anesthesia Eval Consult details Narrative: 52yo M for Colonoscopy PMFSH Active Problems Active Problems: All Active Problems (Updated 02/13/22 @ 13:08 by Misty Trent MD) Hyperlipidemia (Acute) Tachycardia with heart rate 100-120 beats per minute (Acute) GERD without esophagitis (Acute) NORM (obstructive sleep apnea) (Acute) Psoriasis of scalp (Acute) Right anterior shoulder pain (Acute) Seasonal allergic conjunctivitis (Acute) Constipation by delayed colonic transit (Acute) Lump (Acute) Urinary frequency (Acute) Lactose intolerance (Acute) Upper respiratory infection (Acute) Gastroenteritis (Acute) Annual physical exam (Acute) Anxiety (Acute) Adhesive capsulitis of right shoulder (Acute) Past Medical History Medical History Dyslexia GERD (gastroesophageal reflux disease) Seasonal allergies Family History Family History Father NORM (obstructive sleep apnea) Mother Diabetes Family/Other Cancer Maternal Aunt Breast cancer Surgical History Surgical History History of endoscopy Social History Social History Household Members Other:: , disable learing disabilty Housing: House Unable to assess alcohol history related to: Unknown Alcohol intake: never Patient Tobacco Use Status: Never used Tobacco e-Cigarette/Vaping Use: Never Used Second Hand Smoke Exposure: No Use of substances other than those prescribed or required for medical reasons: No Are you DNR?: No Advance Directives: No Advance Directives Information Provided: Yes Advance Directives on File: No Current occupational status: unemployed Current occupation: Right Handed Cognitive needs: No Hearing needs: No Vision needs: Yes Meds Allergies Allergy/AdvReac Type Severity Reaction Status Date / Time No Known Allergies Allergy Verified 02/13/22 07:50 [No Known Allergies*] Home Medications Medication Instructions Recorded Confirmed Last Taken Type ibuprofen 800 mg tablet 800 mg PO TID 05/25/20 12/14/21 Unknown History Exam Exam Date and Time: March 09, 2022 1319 Pertinent Lab Results Pertinent Lab Results: Laboratory Tests 02/13/22 02/13/22 09:47 09:47 WBC 6.7 Hgb 14.0 Hct 42.2 Plt Count 216 Sodium 139 Potassium 3.9 Chloride 104 Carbon Dioxide 28 BUN 12 Creatinine 0.79 Narrative Narrative: EKG 11/2021 Vent. Rate : 113 BPM ? ? Atrial Rate : 113 BPM ?? P-R Int : 142 ms? QRS Dur : 082 ms ? ? QT Int : 314 ms ? ? ? P-R-T Axes : 048 079 023 degrees ?? QTc Int : 430 ms ? Sinus tachycardia Otherwise normal ECG When compared with ECG of 26-OCT-2021 00:50, No significant change was found Assessment and Plan Assessment Anesthesia Assessment: Chart Reviewed Documented by User: Carmelita Samano MD 03/10/22 14:31 [facility] Active Problems Active Problems: All Active Problems (Updated 02/13/22 @ 13:08 by Misty Trent MD) Hyperlipidemia (Acute) Tachycardia with heart rate 100-120 beats per minute (Acute) GERD without esophagitis (Acute) NORM (obstructive sleep apnea) (Acute). No longer using CPAP Psoriasis of scalp (Acute) Right anterior shoulder pain (Acute) Seasonal allergic conjunctivitis (Acute) Constipation by delayed colonic transit (Acute) Lump (Acute) Urinary frequency (Acute) Lactose intolerance (Acute) Upper respiratory infection (Acute) Gastroenteritis (Acute) Annual physical exam (Acute) Anxiety (Acute) Adhesive capsulitis of right shoulder (Acute) Past Medical History Medical History Dyslexia GERD (gastroesophageal reflux disease) Seasonal allergies Family History Family History Father NORM (obstructive sleep apnea) Mother Diabetes Family/Other Cancer Maternal Aunt Breast cancer Family history of problems with anesthesia: No Surgical History Surgical History History of endoscopy History of Problems with Anesthesia: Yes (Slept for 7 hours after endoscopy ) Social History Social History Household Members Other:: , disable learing disabilty Housing: House Unable to assess alcohol history related to: Unknown Alcohol intake: never Patient Tobacco Use Status: Never used Tobacco e-Cigarette/Vaping Use: Never Used Second Hand Smoke Exposure: No Use of substances other than those prescribed or required for medical reasons: No Are you DNR?: No Advance Directives: No Advance Directives Information Provided: Yes Advance Directives on File: No Current occupational status: unemployed Current occupation: Right Handed Cognitive needs: No Hearing needs: No Vision needs: Yes Meds Allergies Allergy/AdvReac Type Severity Reaction Status Date / Time No Known Allergies Allergy Verified 02/13/22 07:50 [No Known Allergies*] Home Medications Medication Instructions Recorded Confirmed Last Taken Type ibuprofen 800 mg tablet 800 mg PO TID 05/25/20 12/14/21 Unknown History Exam Height,Weight and Vital Signs: Height 5 ft 10 in Weight 80.286 kg Vital Signs Temp Pulse Resp BP Pulse Ox O2 Del Method 03/10/22 12:55 99.7 F 77 16 99/73 96 Room Air Airway Mallampati Class: II TM Dist: >3cm Neck ROM: Full Loose/Missing/Broken Teeth: Yes (Chipped top front, front teeth ridged) Heart: RRR Lungs: CTAB Assessment and Plan Assessment Anesthesia Assessment: Anesthesia Plan Discussed Final Anesthetic Review Family History of Problems with Anesthesia: No History of Problems with Anesthesia: Yes (Slept for 7 hours after endoscopy ) NPO: Yes ASA Class: II Final Preanesthetic Review: No Changes in Pt Med Stat, Meds/Allgs Chart Reviewed, Consent Obtained/Reviewed and Anes Risks/Benef Reviewed Patient Risk: Intermediate Procedure Risk: Low Assessment/Block/Sedation in SS: Assess/Block/Sedation-SS Anesthetic Plan Anesthetic Plan: MAC: Disposition: Standard PACU
[2022-03-10 12:50] VITALS: BMI 25.4
[2022-03-10 12:55] VITALS: BP 99/73; PULSE 77; RESP 16; TEMP 37.6; O2SAT 96
[2022-03-10] MEDS: Lactated Ringers 1,000 ML 100 ML IVCONT (13:01)
--- NOTE | 2022-03-10 14:28 | MHC.SHP ---
Pre-Procedural Eval Section A Date of Service: 03/10/22 The patient is an INPATIENT: No The History & Physical has been completed within 30 days and I have reviewed it.: No Section B Chief Complaint: screening Details of Present Illness: Colon cancer screening Relevant Family History (Specify if Yes): No Relevant Social History: None Present Medications: see Short Stay Collaborative assessment Medical History: Significant History (Dyslexia GERD (gastroesophageal reflux disease) Seasonal allergies) History of Previous Operations: Relevant previous surgery/procedure and date(s) (History of endoscopy) Allergies: Allergies Allergy/AdvReac Type Severity Reaction Status Date / Time No Known Allergies Allergy Verified 02/13/22 07:50 [No Known Allergies*] Review of Systems Sugical H&P ROS: Negative: Constitution, Cardiovascular, Respiratory and Gastrointestinal Exam Surgical H&P Exam: Normal: Heart, Normal: Lungs, Normal: Extremities and Normal: Abdomen Plan Diagnosis/Plan: Unchanged I have reviewed the history and physical and performed a pertinent physical examination on my patient. No changes have occurred unless specified.
--- NOTE | 2022-03-10 14:59 | PM.OP ---
Brief Operative Note Date of Service: 03/10/22 Pre-op diagnosis: Colon cancer screening Post-op diagnosis: other (colon polyp, diverticulosis, hemorrhoids) Procedure: COLONOSCOPY TILL CECUM WITH BIOPSIES Consent: Indications for the procedure and potential complications of bleeding, perforation, reaction to medications and missed diagnosis were discussed with the patient and informed consent was obtained. Instrument: Olympus PCF H 190 L variable stiffness pediatric colonoscope Monitoring: Vital signs and clinical assessment, intermittent blood pressure monitoring, continuous EKG monitoring, Pulse oximetry and Carbon Dioxide monitoring were done throughout the procedure. Colon withdrawl time was 15 minutes. Procedure: The patient was placed in the left lateral decubitis position and pre-procedure medications were administered. After a digital rectal examination of the ano-rectum, the video colonoscope was inserted into the rectum and advanced through the colon to the cecum. The colonoscope was slowly withdrawn in a retrograde panoramic fashion and the colon mucosa was carefully examined including a retroflexed view of the rectum. Findings and interventions are described below. Procedure Difficulty: Without difficulty Findings: Terminal Ileum: Not evaluated Cecum: Normal Ascending Colon: Normal Transverse Colon: Normal Descending Colon: Normal Sigmoid Colon: A small 2-3 mm diminutive appearing polyp removed with a cold bx. Moderate diverticulosis Rectum: Normal Ano-rectum: Moderate internal hemorrhoids Colon preparation: Good Impression and Post Procedure Diagnosis: Colonoscopy Findings: One tiny polyp removed Moderate diverticulosis seen in the sigmoid colon Moderate hemorrhoids on retroflexed exam. Plan: Await pathology results Patient has an appointment on 03/24/22 in the GI Clinic with Carolin Tamayo FNP-BC. Repeat Colonoscopy interval based on path results - in 5 years if polyps are adenomatous and 10 years if polyps are hyperplastic. Above findings were reviewed with the patient and colon polyps and diverticulosis handouts were given in the discharge area Surgeon: Terrence Walters MD Anesthesia: MAC Was an Degreasing Wheel Operator used for this Procedure?: Yes Degreasing Wheel Operator: Jack Kothari Estimated blood loss (mL): 0 Pathology: other (A: SIGMOID POLYP) Condition: stable Disposition: PACU
--- NOTE | 2022-03-10 15:03 | W.PM.OPN ---
Operative Note Operative Note Date of Service: 03/10/22 Narrative: Pre-op diagnosis: Colon cancer screening Post-op diagnosis:?other (colon polyp, diverticulosis, hemorrhoids) Procedure: COLONOSCOPY TILL CECUM WITH BIOPSIES Consent: Indications for the procedure and potential complications of bleeding, perforation, reaction to medications and missed diagnosis were discussed with the patient and informed consent was obtained. Instrument: Olympus PCF H 190 L variable stiffness pediatric colonoscope Monitoring: Vital signs and clinical assessment, intermittent blood pressure monitoring, continuous EKG monitoring, Pulse oximetry and Carbon Dioxide monitoring were done throughout the procedure. Colon withdrawl time was 15 minutes. Procedure: The patient was placed in the left lateral decubitis position and pre-procedure medications were administered. After a digital rectal examination of the ano-rectum, the video colonoscope was inserted into the rectum and advanced through the colon to the cecum. The colonoscope was slowly withdrawn in a retrograde panoramic fashion and the colon mucosa was carefully examined including a retroflexed view of the rectum. Findings and interventions are described below. Procedure Difficulty: Without difficulty Findings: Terminal Ileum: Not evaluated Cecum:? Normal Ascending Colon:? Normal Transverse Colon:? Normal Descending Colon:? Normal Sigmoid Colon:? A small 2-3 mm diminutive appearing polyp removed with a cold bx. Moderate diverticulosis Rectum:? Normal Ano-rectum:? Moderate internal hemorrhoids Colon preparation:? Good? Impression and Post Procedure Diagnosis: Colonoscopy Findings: One tiny polyp removed Moderate diverticulosis seen in the sigmoid colon Moderate hemorrhoids on retroflexed exam. Plan: Await pathology results Patient has an appointment on 03/24/22 in the GI Clinic with Carolin Tamayo FNP-BC. Repeat Colonoscopy interval based on path results - in 5 years if polyps are adenomatous and 10 years if polyps are hyperplastic. Above findings were reviewed with the patient and colon polyps and diverticulosis handouts were given in the discharge area Surgeon: Terrence Walters MD Anesthesia:?MAC Was an Kitchen Help Handyman used for this Procedure?:?Yes Kitchen Help Handyman:?Jack Kothari Estimated blood loss (mL):?0 Pathology:?other (A: SIGMOID POLYP) Condition:?stable Disposition:?PACU
[2022-03-10 15:05] VITALS: BP 110/55; PULSE 77; RESP 16; TEMP 36.6; O2SAT 98
[2022-03-10 15:20] VITALS: BP 106/57; PULSE 65; RESP 16; O2SAT 97
[2022-03-10 15:35] VITALS: BP 111/66; PULSE 76; RESP 16; O2SAT 97
[2022-03-10 15:50] VITALS: BP 105/71; PULSE 74; RESP 16; TEMP 36.6; O2SAT 98
== END 2022-03-10 16:10 | disposition home or self-care (01) ==
PROVIDERS: PCP Internal Medicine; Visit Provider Internal Medicine Gastroenterology
PROC: 0DJD8ZZ Inspection of Lower Intestinal Tract, Via Natural or Artificial Opening Endoscopic (ICD-10-PCS; CPT 45378; principal; 2022-03-10 14:20)
DX: Z12.11 Encounter for screening for malignant neoplasm of colon (principal); K63.5 Polyp of colon; K57.30 Diverticulosis of large intestine without perforation or abscess without bleeding; K64.8 Other hemorrhoids; K21.9 Gastro-esophageal reflux disease without esophagitis; J30.2 Other seasonal allergic rhinitis; F41.1 Generalized anxiety disorder; R48.0 Dyslexia and alexia
CPT/HCPCS: 45380; 88305

== ENCOUNTER → 2022-03-24 13:19 | Outpatient (BNVA) | payer OTHER, SELFPAY | PROVIDERS: PCP Internal Medicine; Referring Provider Internal Medicine; Visit Provider Nurse Practitioner Family | DX: K57.90 Diverticulosis of intestine, part unspecified, without perforation or abscess without bleeding (principal); K64.9 Unspecified hemorrhoids; K58.2 Mixed irritable bowel syndrome; Z98.890 Other specified postprocedural states | CPT/HCPCS: 99212 ==

== ENCOUNTER → 2022-09-22 13:16 | Outpatient (BNVA) | payer OTHER, SELFPAY | PROVIDERS: PCP Internal Medicine; Visit Provider Nurse Practitioner Family | DX: K21.9 Gastro-esophageal reflux disease without esophagitis (principal); K58.2 Mixed irritable bowel syndrome; L29.0 Pruritus ani; K64.9 Unspecified hemorrhoids | CPT/HCPCS: 99212 ==

== ENCOUNTER 2022-10-04 10:08 | Emergency (ER) | payer OTHER, SELFPAY ==
--- NOTE | ~2022-10-04 | CT_ITS ---
CT ANGIOGRAM NECK WITH CONTRAST CT ANGIOGRAM BRAIN WITH CONTRAST CLINICAL INFORMATION: Ringing in the ears. Rule out carotid dissection. COMPARISON: None available. TECHNIQUE: Test bolus sequences followed by intravenous administration 70 mL of Omnipaque 350. Helical imaging was performed in the axial plane from the thoracic inlet to the skull vertex. Delayed postcontrast imaging of the head was also performed. The data was processed at the office technologist workstation for generation of MIP sequences. Angled MIPs and volume rendered reformatted images were also generated at an offline 3D workstation under concurrent supervision. Stenoses are assessed in accordance with NASCET criteria unless otherwise indicated. This CT examination was performed using dose optimization techniques as appropriate, variously including the following: *Automated exposure control *Adjustment of mA and/or kV according to patient size (this includes techniques or standardized protocols for targeted exams where dose is matched to indication/reason for exam; i.e. extremities or head) *Use of iterative reconstruction technique FINDINGS: BRAIN: [There is no intracranial hemorrhage, hydrocephalus, extra-axial surface collection, midline shift, or other herniation pattern. White to white matter differentiation is diffusely maintained without evidence of an evolved acute territorial infarct. The basilar cisterns are preserved. No significant soft tissue abnormality. No acute osseous abnormality. The paranasal sinuses and the mastoid air cells are well aerated.] CERVICAL SOFT TISSUES AND LUNG APICES: Imaged upper lungs are clear. No significant soft tissue findings within the neck. Multilevel cervical spondylosis. NECK CTA: [There is a classic 3 vessel configuration of the aortic arch. Proximal arch vessels are non-stenotic. The left vertebral artery is dominant. No significant ostial stenosis is visualized on either side. Both vertebral arteries are widely patent throughout their extracranial cervical course. Both common and internal carotid arteries are normal in course and caliber.] BRAIN CTA: [There is normal opacification of major intracranial arteries. No focal flow-limiting stenosis nor discrete proximal large artery occlusion. No aneurysm. Timing of the contrast bolus allows assessment of the major dural venous sinuses, which all opacify normally] CT/CT angio head neck IMPRESSION: - No acute intracranial findings. - No acute arterial occlusions and no significant arterial stenoses within the head or neck. No evidence of arterial dissection.
--- NOTE | ~2022-10-04 | XR_ITS ---
EXAMINATION: XR CHEST CLINICAL INFORMATION: Dizziness COMPARISON: December 14, 2021 TECHNIQUE: 2 views of the chest were obtained. FINDINGS: No significant abnormality is noted involving the heart, lungs, mediastinum, bony thorax or soft tissues. There is some degenerative spurring about the thoracic spine. XR/XR chest 2V IMPRESSION: No acute disease.
[2022-10-04 10:16] VITALS: BP 128/90; PULSE 92; RESP 20; TEMP 36; O2SAT 96; BMI 27.1
--- NOTE | 2022-10-04 11:23 | ED_ITS ---
HPI - Dizziness General Chief Complaint: Dizziness Stated Complaint: vomiting, dizziness Time Seen by Provider: 10/04/22 11:21 Source: patient Mode of arrival: ambulatory Limitations: no limitations History of Present Illness HPI Narrative: 52 year old male presents to the ED with vertigo and vomiting that started about 3 and a half hours ago. He has experienced fulness in his ears. HIs mother has meniere's as well. He has never experienced anything like this before. Patient brought back immediately wretching activtely. He has been taking pseudofed for his congestion. MD elicited complaint: dizziness Related Data Home Medications Medication Instructions Recorded Confirmed fluticasone propionate 50 1 spray intranasal BID 10/04/22 10/04/22 mcg/actuation nasal spray,suspension hydrocortisone 2.5 % topical cream 1 appl IN BID-QID PRN hemorrhoids 10/04/22 10/04/22 with perineal applicator (Proctosol HC) pseudoephedrine HCl 30 mg tablet 30 mg PO DAILY 10/04/22 10/04/22 (Sudafed) Previous Rx's Medication Instructions Recorded pantoprazole 40 mg tablet,delayed 40 mg PO DAILY 90 days #90 tabs 06/14/22 release meclizine 12.5 mg tablet 12.5 mg PO TID PRN vertigo #30 tabs 10/04/22 Allergies Allergy/AdvReac Type Severity Reaction Status Date / Time No Known Allergies Allergy Verified 10/04/22 10:19 [No Known Allergies*] Review of Systems Review of Systems: Review of systems: General: Patient denies any fever chills recent illness or falls Musculoskeletal: Denies back pain or body aches or other injuries HEENT: denies headache, runny nose, ear pain Respiratory: denies shortness of breath, cough Cardiovascular: no chest pain or palpitations : denies dysuria, frequency Abdomen: no nausea vomiting denies abdominal pain Extremities: no swelling, no pain Skin: no diaphoresis Yes all other systems are reviewed and are negative [facility] Past Medical History Medical History Adhesive capsulitis of right shoulder Annual physical exam Anxiety Dyslexia Gastroenteritis GERD (gastroesophageal reflux disease) Seasonal allergies Upper respiratory infection Surgical History History of endoscopy Hx of colonoscopy Family History Family History Father NORM (obstructive sleep apnea) Mother Diabetes Family/Other Cancer Maternal Aunt Breast cancer Social History Social History Household Members Other:: , disable learing disabilty Housing: House Unable to assess alcohol history related to: Unknown Alcohol intake: never Patient Tobacco Use Status: Never used Tobacco e-Cigarette/Vaping Use: Never Used Second Hand Smoke Exposure: No Advance Directives: No Advance Directives Information Provided: No Current occupational status: unemployed Current occupation: Right Handed Cognitive needs: No Hearing needs: No Vision needs: Yes Physical Exam Vital Signs: Vital Signs: Last Vital Signs Temp 97.4 F 10/04/22 15:39 Pulse 72 10/04/22 15:39 Resp 16 10/04/22 15:39 BP 107/70 10/04/22 15:39 Pulse Ox 97 10/04/22 15:39 O2 Del Method 10/04/22 15:39 BMI result Body Mass Index 27.1 Neurological exam: CN II- XII tested. Patient is alert and oriented to person place and time. Patient has no dysphagia or dysarthia, denies good vision in all four vision hammond no nystagmus on exam, good strength to upper and lower extremities with normal reflexes to brachioradialis, wrist, patella and achilles. Negative romberg, good finger to nose and heel to bell. General: Well-appearing well-nourished in no signs of distress HEENT: Normocephalic atraumatic Neck: No signs of JVD, no masses no tenderness or lymphadenopathy Cardiovascular: Regular rate and rhythm Respiratory: Clear to auscultation bilaterally Abdomen: Soft nontender no masses Extremities: Normal pedal pulses no signs of edema Skin: Dry warm no rashes Back: No tenderness full ROM Medications Administered Discontinued Medications Generic Name Dose Route Start Last Admin Trade Name Freq PRN Reason Stop Dose Admin Diphenhydramine HCl 50 mg 10/04/22 11:29 10/04/22 11:50 Diphenhydramine Hcl 50 Mg/Ml Vial IV 10/04/22 11:30 50 mg ONCE ONE Administration Haloperidol Lactate 5 mg 10/04/22 11:44 10/04/22 11:49 Haloperidol Lactate 5 Mg/Ml Vial IM 10/04/22 11:45 5 mg ONCE ONE Administration Sodium Chloride 1,000 mls @ 999 mls/hr 10/04/22 11:30 10/04/22 12:50 Ns IV 10/04/22 12:30 Infused .Q1H1M VALENTINO Infusion Iohexol 100 ml 10/04/22 13:42 10/04/22 13:42 Iohexol 350 Mg/Ml 100 Ml Infus..Btl IV 10/04/22 13:43 75 ml ONCE ONE Administration Lorazepam 1 mg 10/04/22 11:29 10/04/22 11:50 Lorazepam 2 Mg/Ml Vial IVPUSH 10/04/22 11:30 1 mg ONCE ONE Administration Medical Decision Making Medical Decision Making [facility] Narrative: Concern for carotid dissection with posterior circulation stroke I will get a CTA head and neck symptoms were sudden in onset and disabling I think this could be BPPV or peripheral vertigo. I will treat with haldol, benadryl, for nausea and vomiting I will consider steroids for a labyrinthitis. I will start with fluids at this time. 1540 CTA labs are all normal. Patient evaluated multiple times felt better after ativan benadryl. Woke up with dry throat improved with a few sips of water. He will be sent home with Neuro follow up and meclizine. Differential Diagnosis Differential Diagnoses: The differential diagnosis associated with the pres entation includes Differential diagnosis: Vertigo BPPV central vs peripheral. NO ringing ears just senses a fulness concern this could be peripheral or central related to carotid dissection. Admission/Observation Consideration of admission/observation: Escalation of care including admission/observation considered Lab Data [facility] Lab Attestation statement: I reviewed the patient's lab results. 10/04/22 11:48 10/04/22 11:48 Labs: Lab Results 10/04/22 10/04/22 10/04/22 Range/Units 11:48 11:48 11:48 WBC 15.6 H (4.8-10.8) X10*3/uL RBC 4.99 (4.60-5.80) X10*6/uL Hgb 14.9 (14.0-18.0) g/dl Hct 43.4 (42.0-52.0) % MCV 87.0 (80.0-98.0) fL MCH 29.9 (27.0-33.0) pg MCHC 34.3 (31.0-36.0) g/dl RDW 11.9 (11.0-16.0) % Plt Count 222 (160-400) X10*3/uL MPV 9.1 L (9.4-12.4) fL Immature Gran % (Auto) 0.4 (0.0-0.4) % Neut % (Auto) 82.6 H (45-73) % Lymph % (Auto) 9.2 L (20-40) % Wilkinson % (Auto) 7.4 (2-11) % Eos % (Auto) 0.1 (0-4) % Baso % (Auto) 0.3 (0-2) % Lymph # (Auto) 1.4 (1.2-4.9) X10*3/uL Wilkinson # (Auto) 1.2 (0.1-1.2) X10*3/uL Eos # (Auto) 0.0 (0.0-0.4) X10*3/uL Baso # (Auto) 0.1 (0.0-0.2) X10*3/uL Abs Immat Gran (auto) 0.07 H (0.00-0.03) X10*3/uL Absolute Neuts (auto) 12.9 H (2.0-8.3) x10*3/uL Absolute Nucleated RBC 0.000 (0.0-0.012) X10*3/uL Nucleated RBC % (auto) 0.0 (0.0-0.2) /100WBC Sodium 143 (135-145) mmol/L Potassium 3.9 (3.3-5.1) mmol/L Chloride 108 (96-108) mmol/L Carbon Dioxide 25 (22-29) mmol/L Anion Gap 14 (12-20) BUN 12 (9-16) mg/dL Creatinine 0.81 (0.5-1.4) mg/dL Estim Creat Clear Calc 111.4 Estimated GFR > 60 Random Glucose 130 H (60-115) mg/dL Calcium 9.0 (8.4-10.2) mg/dL Total Bilirubin 0.6 (0.0-1.0) mg/dL Direct Bilirubin 0.2 (0.0-0.5) mg/dL AST 21 (5-37) U/L ALT 36 (0-40) U/L Alkaline Phosphatase 93 (39-117) U/L Total Protein 6.9 (6.5-8.0) g/dL Albumin 4.0 (3.5-5.0) g/dL Lipase 12 (8-78) U/L COVID-19 (AI) Negative (Negative) COVID-19 Clin Com See Note Discharge Plan Discharge Clinical Impression: Vertigo Patient Disposition: Home, Self-Care Instructions: Vertigo (ED) Additional Instructions: Please call to abi garcia with Neurology. Take meclizine as needed. If you feel worse please don't hesitate to return to the ED. Prescriptions: New meclizine 12.5 mg tablet 12.5 mg PO TID PRN (Reason: vertigo) Qty: 30 0RF No Action pantoprazole 40 mg tablet,delayed release (DR/EC) 40 mg PO DAILY 90 Days Qty: 90 1RF hydrocortisone [Proctosol HC] 2.5 % cream with perineal applicator 1 appl IN BID-QID PRN (Reason: hemorrhoids) Protocol: Apply to: Apply to: RECTAL AREA pseudoephedrine HCl [Sudafed] 30 mg Tablet 30 mg PO DAILY Rx Instructions: DNExceed 4 doses/24h fluticasone propionate 50 mcg/actuation spray,suspension 1 spray intranasal BID Rx Instructions: administer into each nostril Referrals: Milana Navas MD [Physician] - (Please call to follow up for your Vertigo. If you have any other concerns please return to the ED.)
[2022-10-04 11:29] VITALS: BP 141/102; PULSE 70; RESP 11; TEMP 36.4; O2SAT 98
--- NOTE | 2022-10-04 11:30 | ECG_ITS ---
Test Reason : dizziness Blood Pressure : / mmHG Vent. Rate : 072 BPM Atrial Rate : 072 BPM P-R Int : 176 ms QRS Dur : 086 ms QT Int : 416 ms P-R-T Axes : 059 055 011 degrees QTc Int : 455 ms Normal sinus rhythm Normal ECG When compared with ECG of 14-DEC-2021 14:00, Vent. rate has decreased BY 41 BPM Referred By: Danilo Grajeda Electronically Signed By:Sheldon Sloan
[2022-10-04] MEDS: Haloperidol Lactate 5 MG/ML VIAL IM (11:49)
[2022-10-04] MEDS: 0.9 % Sodium Chloride 1,000 ML 999 ML IV (11:49)
[2022-10-04] MEDS: diphenhydrAMINE HCL 50 MG/ML VIAL IV (11:50)
[2022-10-04] MEDS: LORazepam 2 MG/ML VIAL 1 MG IVPUSH (11:50)
--- NOTE | 2022-10-04 11:58 | PHA.MEDREC ---
Pharmacy Consult ? Medication Reconciliation Pharmacy has completed the medication reconciliation. Spoke to patient and spouse to complete med rec.
[2022-10-04 12:01] LABS: MANUAL DIFF FLAG NO
[2022-10-04 12:04] LABS: Basophils Absolute Auto 0.1 X10*3/uL (0.0-0.2); Basophils Percent Auto 0.3 % (0-2); Eosinophils Percent Auto 0.1 % (0-4); Hematocrit 43.4 % (42.0-52.0); Hemoglobin 14.9 g/dl (14.0-18.0); Imm Gran Abs Auto 0.07 X10*3/uL (0.00-0.03); Imm Gran Pct Auto 0.4 % (0.0-0.4); Lymphocytes Absolute Auto 1.4 X10*3/uL (1.2-4.9); Lymphocytes Percent Auto 9.2 % (20-40); Mean Corpuscular HGB Conc 34.3 g/dl (31.0-36.0); Mean Corpuscular Hemoglobin 29.9 pg (27.0-33.0); Mean Platelet Volume 9.1 fL (9.4-12.4); Monocytes Absolute Auto 1.2 X10*3/uL (0.1-1.2); Monocytes Percent Auto 7.4 % (2-11); Neutrophils Absolute Auto 12.9 x10*3/uL (2.0-8.3); Neutrophils Percent Auto 82.6 % (45-73); Platelet Count 222 X10*3/uL (160-400); Red Blood Count 4.99 X10*6/uL (4.60-5.80); Red Cell Distribution Width 11.9 % (11.0-16.0); White Blood Count 15.6 X10*3/uL (4.8-10.8)
[2022-10-04 12:18] LABS: Alanine Aminotransferase 36 U/L (0-40); Alkaline Phosphatase 93 U/L (39-117); Anion Gap 14 (12-20); Aspartate Amino Transferase 21 U/L (5-37); Bilirubin Direct 0.2 mg/dL (0.0-0.5); Bilirubin Total 0.6 mg/dL (0.0-1.0); Blood Urea Nitrogen 12 mg/dL (9-16); Carbon Dioxide 25 mmol/L (22-29); Chloride 108 mmol/L (96-108); Creatinine Clr Calc Pharmacy 111.4; Estimated Glomerular Filt Rate > 60; Glucose Random 130 mg/dL (60-115); Lipase 12 U/L (8-78); Potassium 3.9 mmol/L (3.3-5.1); Sodium 143 mmol/L (135-145); Total Protein 6.9 g/dL (6.5-8.0)
[2022-10-04 12:20] LABS: COVID-19 Test Negative (Negative); IDNOW Serial# 55D5AD1C
[2022-10-04] MEDS: iohexoL 350 MG/ML 100 ML INFUS..BTL IV (13:42)
[2022-10-04 14:08] VITALS: BP 125/72; PULSE 72; RESP 14; TEMP 36.4; O2SAT 99
[2022-10-04 15:39] VITALS: BP 107/70; PULSE 72; RESP 16; TEMP 36.3; O2SAT 97
== END 2022-10-04 16:29 | disposition home or self-care (01) ==
PROVIDERS: Emergency Provider Student in an Organized Health Care Education/Training Program; PCP Internal Medicine
DX: R42 Dizziness and giddiness (principal); Z20.822 Contact with and (suspected) exposure to COVID-19; E78.5 Hyperlipidemia, unspecified; Z79.899 Other long term (current) drug therapy
CPT/HCPCS: 70496; 70498; 71046; 80048; 80076; 83690; 85025; 87635; 93005; 96361; 96372; 96374; 96375; 99284; 99285; J1200; J2060; Q9967

== ENCOUNTER 2023-03-01 08:47 | Outpatient (AMB) | payer OTHER, SELFPAY ==
--- NOTE | 2023-03-01 09:32 | MHC.PC.OV ---
Vital Signs 03/01/23 09:35 Height 5 ft 10 in Weight 189 lb BMI 27.1 BP 98/64 Blood Pressure Location Rt brachial Position Sitting Pulse 84 Pulse Source Pulse Oximeter Pulse Oximetry (%) 98 Oxygen Delivery Method Room Air Intake Visit Reasons: PE Intake Note: Pt is here today for PE. Pt states that he needs scripts to be written for 90 day supply for insurance to cover it. Allergies No Known Allergies [No Known Allergies*] Allergy (Verified 03/01/23 09:36) Medication List - Last Reconciled 03/01/23 by Misty Trent MD fluticasone propionate 50 mcg/actuation 1 spray intranasal BID hydrocortisone 2.5% (Proctosol HC) 1 appl See Protocol NE BID-QID PRN meclizine 12.5 mg PO TID PRN [metamucil gummies PO] pantoprazole 40 mg PO DAILY 90 days pseudoephedrine HCl (Sudafed) 30 mg PO DAILY Tobacco use date assessed: 03/01/23 Dental Screening Dental Screen Date: 03/01/23 Did you have a dental visit in the last 12 months?: Yes Did you have a dental problem in the last 6 months where you did not have access to dental care?: No Was dental information given to patient?: Patient has dentist HPI PE HPI Details Pt presents for PE. PFSH Medical History Adhesive capsulitis of right shoulder Annual physical exam Anxiety Dyslexia Gastroenteritis GERD (gastroesophageal reflux disease) Seasonal allergies Upper respiratory infection Surgical History History of endoscopy Hx of colonoscopy Family History Father NORM (obstructive sleep apnea) Mother Diabetes Family/Other Cancer Maternal Aunt Breast cancer Social History Household Members Other:: , disable learing disabilty Housing: House Unable to assess alcohol history related to: Unknown Alcohol intake: never Patient Tobacco Use Status: Never used Tobacco e-Cigarette/Vaping Use: Never Used Second Hand Smoke Exposure: No Current occupational status: unemployed Current occupation: Right Handed Cognitive needs: No Hearing needs: No Vision needs: Yes Questionnaire PHQ-9 Over the last 2 weeks, how often have you been bothered by any of the following problems? 1. Little interest or pleasure in doing things: not at all 2. Feeling down, depressed, or hopeless: not at all 3. Trouble falling or staying asleep, or sleeping too much: not at all 4. Feeling tired or having little energy: not at all 5. Poor appetite or overeating: not at all 6. Feeling bad about yourself - or that you are a failure or have let yourself or your family down: not at all 7. Trouble concentrating on things, such as reading the newspaper or watching television: not at all 8. Moving or speaking so slowly that other people could have noticed. Or the opposite - being so fidgety or restless that you have been moving around a lot more than usual: not at all 9. Thoughts that you would be better off or of hurting yourself in some way: not at all Total score: 0 Depression Screening Interpretation: Negative Source: Developed by Drs. Tigre Oreilly, Betina Mendez, David Brink and colleagues, with an educational darren from [employer]. Thrive Questionnaire Date Thrive assessed: 03/01/23 I am a: Patient What is your living situation today?: I have a steady place to live Within the past 12 months, did the food you bought not last and you didn't have the money to get more?: Never true Within the past 12 months, did you worry whether your food would run out before you got money to buy more?: Never true Do you have trouble paying for medicines?: No Do you have trouble getting transportation to medical appointments?: No Do you have trouble paying your heating and electricity bill?: No Do you have trouble taking care of your child, family member or friend?: No Do you have trouble with day-to-day activities such as bathing, preparing meals, shopping, managing finances, etc.?: No Are you currently unemployed and looking for a job?: No Are you interested in more education?: No Please select the resources that you would like help with: None Currently or been in a relationship where the following occur: no concerns reported MAGY-7 AMB Questionnaire MAGY-7 Date MAGY - 7 assessed: 03/01/23 Feeling nervous, anxious, or on edge: 0 = Not at all Not being able to stop or control worryin = Not at all Worrying too much about different things: 0 = Not at all Trouble relaxin = Not at all Being so restless that it is hard to sit still: 0 = Not at all Becoming easily annoyed or irritable: 0 = Not at all Feeling afraid as if something awful might happen: 0 = Not at all Total MAGY-7 score (0-4 normal; 5-9 mild; 10-14 moderate; 15-21 severe): 0 Source: Developed by Drs. Tigre Oreilly, Betina Mendez, David Brink and colleagues, with an educational darren from [employer]. Review of Systems Const All systems reviewed & are unremarkable except as noted in HPI and below Reports no additional complaints Eyes Reports no additional complaints ENT Reports no additional complaints Card Reports no additional complaints Resp Reports no additional complaints GI Reports no additional complaints Reports no additional complaints Physical exam (Primary Care) Vital Signs: Last Vital Signs Pulse 84 03/01/23 09:35 BP 98/64 03/01/23 09:35 Pulse Ox 98 03/01/23 09:35 Oxygen Delivery Method Room Air 03/01/23 09:35 BMI result Body Mass Index 27.1 Tobacco/Smoking Status: Tobacco use Status Tobacco use date assessed 03/01/23 03/01/23 09:42 Patient Tobacco Use Status Never used Tobacco 03/01/23 09:32 e-Cigarette/Vaping Use Never Used 03/01/23 09:32 PHQ-9: PHQ-9 Score PHQ-9: Total score 0 03/01/23 09:50 Depression Screening Interpretation: Negative Thrive Assessment: Date of Thrive Assessment Date Thrive assessed 03/01/23 03/01/23 09:50 Currently or been in a relationship where the following occur: no concerns reported Const General: no acute distress HENMT Head: Yes normal to inspection Ears: hearing grossly normal bilaterally Face and sinus: Yes normal facial exam Throat: Yes posterior oropharynx normal Neck Neck: Yes no lymphadenopathy and Yes supple Resp Effort & Inspection: normal respiratory effort Auscultation: clear to auscultation bilaterally Cardio Rhythm: regular rhythm Heart sounds: S1 normal heart sound present and S2 normal heart sound present GI Inspection: Yes normal to inspection Palpation (GI): Soft to palpation Percussion: Yes normal to percussion Auscultation: normal bowel sounds Assessment and Plan Assessment & Plan (1) Annual physical exam: Code(s): Z00.00 - Encounter for general adult medical examination without abnormal findings Plan: WELL-BALANCED DIET REGULAR PHYSICAL ACTIVITY DISCUSSED WITH THE PATIENT. HE WILL HAVE A FASTING BLOOD WORK TODAY (2) Hyperlipidemia: Code(s): E78.5 - Hyperlipidemia, unspecified Plan: LOW-CHOLESTEROL DIET DISCUSSED WITH THE PATIENT (3) Hyperglycemia: Code(s): R73.9 - Hyperglycemia, unspecified Plan: Check A1c and ADA diet increase physical activity discussed with the patient. return in 1 year or p.r.n. Orders: Orders Comprehensive [place]. Panel Fast Today E78.5 - Hyperlipidemia, unspecified, R73.9 - Hyperglycemia, unspecified, Z00.00 - Encounter for general adult medical examination without abnormal findings Hemoglobin A1c Today E78.5 - Hyperlipidemia, unspecified, R73.9 - Hyperglycemia, unspecified, Z00.00 - Encounter for general adult medical examination without abnormal findings Lipid Panel Today E78.5 - Hyperlipidemia, unspecified, R73.9 - Hyperglycemia, unspecified, Z00.00 - Encounter for general adult medical examination without abnormal findings PSA,Total (Free>4and<10) Today E78.5 - Hyperlipidemia, unspecified, R73.9 - Hyperglycemia, unspecified, Z00.00 - Encounter for general adult medical examination without abnormal findings Complete Blood Count Auto Diff Today E78.5 - Hyperlipidemia, unspecified, R73.9 - Hyperglycemia, unspecified, Z00.00 - Encounter for general adult medical examination without abnormal findings Medications: Refilled pantoprazole 40 mg PO DAILY 90 days 90 tabs 3RF Coding Level of Care Code Est Pt Prev Care 40-64y(23995) Diagnoses Annual physical exam Z00.00 Hyperlipidemia E78.5 Hyperglycemia R73.9
[2023-03-01 09:35] VITALS: BP 98/64; PULSE 84; O2SAT 98; BMI 27.1
== END 2023-03-01 10:24 | disposition home or self-care (01) ==
PROVIDERS: PCP Internal Medicine; Visit Provider Internal Medicine
DX: Z00.00 Encounter for general adult medical examination without abnormal findings (principal); E78.5 Hyperlipidemia, unspecified; R73.9 Hyperglycemia, unspecified
CPT/HCPCS: 99396

== ENCOUNTER 2023-03-01 10:21 | Outpatient (REF) | payer OTHER, SELFPAY ==
[2023-03-01 13:14] LABS: MANUAL DIFF FLAG NO
[2023-03-01 13:36] LABS: Basophils Absolute Auto 0.1 X10*3/uL (0.0-0.2); Basophils Percent Auto 1.1 % (0-2); Eosinophils Absolute Auto 0.1 X10*3/uL (0.0-0.4); Eosinophils Percent Auto 1.4 % (0-4); Hemoglobin 15.3 g/dl (14.0-18.0); Imm Gran Abs Auto 0.02 X10*3/uL (0.00-0.03); Imm Gran Pct Auto 0.3 % (0.0-0.4); Lymphocytes Absolute Auto 1.9 X10*3/uL (1.2-4.9); Lymphocytes Percent Auto 29.6 % (20-40); Mean Corpuscular Hemoglobin 30.6 pg (27.0-33.0); Mean Platelet Volume 10.5 fL (9.4-12.4); Monocytes Absolute Auto 0.6 X10*3/uL (0.1-1.2); Monocytes Percent Auto 9.7 % (2-11); Neutrophils Absolute Auto 3.7 x10*3/uL (2.0-8.3); Neutrophils Percent Auto 57.9 % (45-73); Platelet Count 211 X10*3/uL (160-400); White Blood Count 6.3 X10*3/uL (4.8-10.8)
[2023-03-01 13:42] LABS: Estimated Average Glucose 91 mg/dL; Hemoglobin A1c % 4.8 %
[2023-03-01 13:55] LABS: Alanine Aminotransferase 48 U/L (0-40); Albumin Level 4.2 g/dL (3.5-5.0); Alkaline Phosphatase 92 U/L (39-117); Anion Gap 12 (12-20); Aspartate Amino Transferase 28 U/L (5-37); Blood Urea Nitrogen 11 mg/dL (9-16); Calcium 9.7 mg/dL (8.4-10.2); Carbon Dioxide 26 mmol/L (22-29); Chloride 106 mmol/L (96-108); Cholesterol 233 mg/dL; Estimated Glomerular Filt Rate > 60; Glucose Fasting 101 mg/dL (60-99); HDL Cholesterol 43 mg/dL; LDL Cholesterol Calculated 170 mg/dl; Potassium 4.2 mmol/L (3.3-5.1); Sodium 140 mmol/L (135-145); Total Protein 7.6 g/dL (6.5-8.0); Triglycerides 103 mg/dL
== END 2023-03-01 10:22 | disposition home or self-care (01) ==
LOC: HO.HMGCLDS 10:21
PROVIDERS: PCP Internal Medicine; Visit Provider Internal Medicine
DX: Z00.00 Encounter for general adult medical examination without abnormal findings (principal); Z12.5 Encounter for screening for malignant neoplasm of prostate; E78.5 Hyperlipidemia, unspecified; R73.9 Hyperglycemia, unspecified
CPT/HCPCS: 36415; 80053; 80061; 83036; 84153; 85025

== ENCOUNTER 2023-03-30 13:08 | Outpatient (AMB) | payer OTHER, SELFPAY ==
--- NOTE | 2023-03-30 13:11 | A.OFFVIS_ITS ---
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 Staying upright for minimum 3 hours after meals discussed with patient the patient is taking pantoprazole half an hour before breakfast and reports that his symptoms of acid reflux are completely suppressed. IBS (irritable bowel syndrome) Continue low FODMAP diet. Patient reports that he is following the recommendation that was given to him last visit. Continue taking fiber supplement and probiotic. Avoiding dietary triggers discussed with patient. Anal itching Patient reports anal pruritus. He was diagnosed with moderate internal hemorrhoids on colonoscopy. I will send a script for Proctosol. Patient will call me if this not going to be effective. Patient denies any rectal pain or bleeding. I will see him in 6 months, sooner on as needed basis. Patient is agreeable to plan of care and verbalizes understanding of instructions. He was given the opportunity to ask questions and all questions answered. ? Thank you for allowing me to participate in his care Plan Medications New hydrocortisone 2.5% (Proctosol HC) 1 appl MS BID-QID PRN 30 grams 2RF hemorrhoids K64.9 Discontinued sucralfate (Carafate) Discontinued Reason: Patient no longer taking 10 mL PO BID 420 mL 0RF TODAY'S VISIT Patient is here today for follow-up. Patient states that he has been doing well, however he noticed that lately he moves his bowels every 3 days instead of every other day. Patient reports that he drinks plenty fluids. Because it is hot outside he has been eating more ice cream. Thinking that maybe this is is causing him being a little constipated. Patient is taking fiber supplement with probiotic daily. Patient denies melena, hematochezia, unintentional weight loss or ribbon like stools. Patient denies any dyspepsia, dysphagia or odynophagia. Patient denies any other GI concerning symptoms. [facility] Medical History (Updated 03/02/23 @ 08:24 by Misty Trent MD) Adhesive capsulitis of right shoulder Annual physical exam Anxiety Dyslexia Gastroenteritis GERD (gastroesophageal reflux disease) Hyperlipidemia Seasonal allergies Upper respiratory infection Surgical History History of endoscopy Hx of colonoscopy Family History Father NORM (obstructive sleep apnea) Mother Diabetes Family/Other Cancer Maternal Aunt Breast cancer Social History Household Members Other:: , disable learing disabilty Housing: House Unable to assess alcohol history related to: Unknown Alcohol intake: never Patient Tobacco Use Status: Never used Tobacco e-Cigarette/Vaping Use: Never Used Second Hand Smoke Exposure: No Current occupational status: unemployed Current occupation: Right Handed Cognitive needs: No Hearing needs: No Vision needs: Yes Review of Systems Const Denies weight gain and Denies weight loss ENT Reports no additional complaints, Denies dysphagia and Denies odynophagia Card Reports no additional complaints Resp Reports no additional complaints GI Denies abdominal pain, Denies belching, Denies melena, Denies bloating, Denies change in bowel habits, Reports constipation (occasional), Denies dysphagia, Denies excessive flatus, Denies dyspepsia, Denies heartburn, Denies diarrhea, Denies loose stools, Denies nausea, Denies odynophagia and Denies vomiting Reports no additional complaints Musc Reports no additional complaints Neuro Reports no additional complaints Psych Reports no additional complaints Endo Reports no additional complaints Physical Exam Const General: healthy appearing, no acute distress and well developed Nutritional Appearance: well nourished Orientation/consciousness: patient oriented x3 HEENT Head: Yes normal to inspection, Yes normocephalic and Yes atraumatic Face and sinus: Yes normal facial exam Mouth: Normal oral and palatal mucosa present Throat: Yes posterior oropharynx normal, Yes tonsils normal and Yes uvula midline Eyes General: appearance normal, both eyes and all related structures Neck Neck: Yes normal visual inspection, Yes full ROM and Yes trachea midline Thyroid: Thyroid normal Resp Effort & Inspection: normal respiratory effort, able to speak in complete sentences, no tracheal deviation and symmetric chest movement Auscultation: clear to auscultation bilaterally Cardio Rate: regular rate Heart sounds: S1 normal heart sound present and S2 normal heart sound present GI Inspection: Yes normal to inspection and No distended Palpation (GI): Soft to palpation, not firm, nontender and No hepatosplenomegaly present Auscultation: normal bowel sounds General: Yes no CVA tenderness Back/Spine/Pelvis Back: no CVA tenderness Skin General skin exam: elasticity normal, turgor normal and dry skin Neuro General: patient oriented x3 Psych Appearance: grossly normal Mental Status: mental status grossly normal Speech and movement: Normal speech and movement present Assessment & Plan Assessment & Plan (1) Constipation: Code(s): K59.00 - Constipation, unspecified Qualifiers: Constipation type: slow transit constipation Qualified Code(s): K59.01 - Slow transit constipation Plan: Continue fiber supplement. Increase fluid intake and activity to promote better bowel motility. Patient can take MiraLax daily to help him move his bowels better. (2) GERD without esophagitis: Code(s): K21.9 - Gastro-esophageal reflux disease without esophagitis Plan: Continue pantoprazole. Avoid dietary triggers and late night snacking. Staying upright for minimum 3 hours after meals discussed with patient. Patient will follow-up with us on as-needed basis. He is agreeable to this plan and verbalizes understanding of instructions. He was given the opportunity to ask questions and all questions answered. Thank you for allowing me to participate in his care Medications: New polyethylene glycol 3350 (Miralax) 17 grams PO DAILY 510 grams 2RF Coding Level of Care Code Est Pt Level 3 (64894) Diagnoses Constipation K59.01 Constipation type: slow transit constipation GERD without esophagitis K21.9 Time Spent (min) 25 Comment 15 minutes spent with patient and additional 10 minutes spent reviewing his records
[2023-03-30 13:16] VITALS: BP 124/70; PULSE 80; BMI 26.1
== END 2023-03-30 13:51 | disposition home or self-care (01) ==
PROVIDERS: Visit Provider Nurse Practitioner Family
DX: K59.01 Slow transit constipation (principal); K21.9 Gastro-esophageal reflux disease without esophagitis
CPT/HCPCS: 99213

== ENCOUNTER → 2023-03-30 13:08 | Outpatient (BNVA) | payer OTHER, SELFPAY | PROVIDERS: Visit Provider Nurse Practitioner Family | DX: K59.01 Slow transit constipation (principal); K21.9 Gastro-esophageal reflux disease without esophagitis | CPT/HCPCS: 99212 ==

== ENCOUNTER 2024-03-03 08:40 | Outpatient (AMB) | payer OTHER, SELFPAY ==
--- NOTE | 2024-03-03 08:43 | MHC.PC.OV ---
Vital Signs 03/03/24 08:49 Height 5 ft 10 in Weight 180 lb BMI 25.8 BP 120/70 Blood Pressure Location Rt brachial Position Sitting Pulse 76 Pulse Source Pulse Oximeter Pulse Oximetry (%) 97 Oxygen Delivery Method Room Air Intake Visit Reasons: pe Intake Note: Pt is here today for PE. Pt states that he needs a refill on his meds 90 days supply. Allergies No Known Allergies [No Known Allergies*] Allergy (Verified 03/03/24 08:50) Medication List - Last Reconciled 03/03/24 by Misty Trent MD fluticasone propionate 50 mcg/actuation 1 spray intranasal BID hydrocortisone 2.5% (Proctosol HC) 1 appl See Protocol PA BID-QID PRN meclizine 12.5 mg PO TID PRN [metamucil gummies PO] pantoprazole 40 mg PO DAILY 90 days polyethylene glycol 3350 (Miralax) 17 grams PO DAILY pseudoephedrine HCl (Sudafed) 30 mg PO DAILY Tobacco use date assessed: 03/03/24 Dental Screening Dental Screen Date: 03/03/24 Did you have a dental visit in the last 12 months?: No Did you have a dental problem in the last 6 months where you did not have access to dental care?: No Was dental information given to patient?: Patient declined HPI pe HPI Details Pt presents for PE. PFSH Medical History Hyperlipidemia GERD (gastroesophageal reflux disease) Upper respiratory infection Gastroenteritis Annual physical exam Anxiety Adhesive capsulitis of right shoulder Seasonal allergies Dyslexia Surgical History Hx of colonoscopy History of endoscopy Family History Father NORM (obstructive sleep apnea) Mother Diabetes Family/Other Cancer Maternal Aunt Breast cancer Social History Household Members Other:: , disable learing disabilty Housing: House Unable to assess alcohol history related to: Unknown Alcohol intake: never Patient Tobacco Use Status: Never used Tobacco e-Cigarette/Vaping Use: Never Used Second Hand Smoke Exposure: No service: No Current occupational status: unemployed Current occupation: Right Handed Cognitive needs: No Hearing needs: No Vision needs: Yes Questionnaire PHQ-9 Over the last 2 weeks, how often have you been bothered by any of the following problems? 1. Little interest or pleasure in doing things: not at all 2. Feeling down, depressed, or hopeless: not at all 3. Trouble falling or staying asleep, or sleeping too much: not at all 4. Feeling tired or having little energy: not at all 5. Poor appetite or overeating: not at all 6. Feeling bad about yourself - or that you are a failure or have let yourself or your family down: not at all 7. Trouble concentrating on things, such as reading the newspaper or watching television: not at all 8. Moving or speaking so slowly that other people could have noticed. Or the opposite - being so fidgety or restless that you have been moving around a lot more than usual: not at all 9. Thoughts that you would be better off or of hurting yourself in some way: not at all Total score: 0 Depression Screening Interpretation: Negative Depression Screening Done: Yes 46396 - PHQ-9 Billing: Yes Source: Developed by Drs. Tigre Oreilly, Betina Mendez, David Brink and colleagues, with an educational darren from [employer]. Thrive Questionnaire Date Thrive assessed: 03/03/24 I am a: Patient What is your living situation today?: I have a steady place to live Within the past 12 months, did the food you bought not last and you didn't have the money to get more?: Sometimes True Within the past 12 months, did you worry whether your food would run out before you got money to buy more?: I choose not to answer this question Do you have trouble paying for medicines?: No Do you have trouble getting transportation to medical appointments?: No Do you have trouble paying your heating and electricity bill?: No Do you have trouble taking care of your child, family member or friend?: No Do you have trouble with day-to-day activities such as bathing, preparing meals, shopping, managing finances, etc.?: No Are you currently unemployed and looking for a job?: No Are you interested in more education?: No Please select the resources that you would like help with: Housing/Correction Currently or been in a relationship where the following occur: No concerns reported THRIVE Score: 1 AUDIT C Alcohol Use Questionnaire (AUDIT-C) 1. How often do you have a drink containing alcohol?: Never 3. How often do you have six or more drinks on one occasion?: Never Total Score: 0 MAGY-7 AMB Questionnaire MAGY-7 Date MAGY - 7 assessed: 03/03/24 Feeling nervous, anxious, or on edge: 0 = Not at all Not being able to stop or control worryin = Not at all Worrying too much about different things: 0 = Not at all Trouble relaxin = Not at all Being so restless that it is hard to sit still: 0 = Not at all Becoming easily annoyed or irritable: 0 = Not at all Feeling afraid as if something awful might happen: 0 = Not at all Total MAGY-7 score (0-4 normal; 5-9 mild; 10-14 moderate; 15-21 severe): 0 Source: Developed by Drs. Tigre Oreilly, Betina Mendez, David Brink and colleagues, with an educational darren from [employer]. MAGY-7 Assessment Billing MAGY-7 Assessment Tool: MAGY-7 Assessment 93023 Review of Systems Const All systems reviewed & are unremarkable except as noted in HPI and below Reports no additional complaints Eyes Reports no additional complaints ENT Reports no additional complaints Card Reports no additional complaints Resp Reports no additional complaints GI Reports no additional complaints Reports no additional complaints Musc Reports no additional complaints Physical exam (Primary Care) Vital Signs: Last Vital Signs Pulse 76 03/03/24 08:49 BP 120/70 03/03/24 08:49 Pulse Ox 97 03/03/24 08:49 Oxygen Delivery Method Room Air 03/03/24 08:49 BMI result Body Mass Index 25.8 Tobacco/Smoking Status: Tobacco use Status Tobacco use date assessed 03/03/24 03/03/24 08:50 Patient Tobacco Use Status Never used Tobacco 03/03/24 08:50 e-Cigarette/Vaping Use Never Used 03/03/24 08:44 PHQ-9: PHQ-9 Score PHQ-9: Total score 0 03/03/24 09:03 Depression Screening Interpretation: Negative Thrive Assessment: Date of Thrive Assessment Date Thrive assessed 03/03/24 03/03/24 08:44 Currently or been in a relationship where the following occur: No concerns reported Const General: no acute distress HENMT Head: Yes normal to inspection Ears: hearing grossly normal bilaterally Face and sinus: Yes normal facial exam Throat: Yes posterior oropharynx normal Eyes General: appearance normal, both eyes and all related structures Neck Neck: Yes no lymphadenopathy and Yes supple Resp Effort & Inspection: normal respiratory effort Auscultation: clear to auscultation bilaterally Cardio Rhythm: regular rhythm Heart sounds: S1 normal heart sound present and S2 normal heart sound present GI Inspection: Yes normal to inspection Palpation (GI): Soft to palpation Percussion: Yes normal to percussion Auscultation: normal bowel sounds Assessment and Plan Assessment & Plan (1) Hyperlipidemia: Code(s): E78.5 - Hyperlipidemia, unspecified Qualifiers: Hyperlipidemia type: mixed hyperlipidemia Qualified Code(s): E78.2 - Mixed hyperlipidemia Plan: LOW-CHOLESTEROL DIET INCREASE PHYSICAL ACTIVITY DISCUSSED WITH THE PATIENT pravastatin 40 mg will be started patient will return in 3 months for blood work (2) Annual physical exam: Code(s): Z00.00 - Encounter for general adult medical examination without abnormal findings Plan: Well-balanced diet regular physical activity discussed with the patient. he is up-to-date with colonoscopy. Orders: Orders Lipid Panel 3 Months E78.5 - Hyperlipidemia, unspecified Lipid Panel 1 Year E78.5 - Hyperlipidemia, unspecified, R73.9 - Hyperglycemia, unspecified Comprehensive [facility]. Panel Fast 1 Year E78.5 - Hyperlipidemia, unspecified, R73.9 - Hyperglycemia, unspecified Complete Blood Count Auto Diff 1 Year E78.5 - Hyperlipidemia, unspecified, R73.9 - Hyperglycemia, unspecified Medications: New pravastatin 40 mg PO BEDTIME 90 tabs 3RF Coding Level of Care Code Est Pt Prev Care 40-64y(12259) Diagnoses Mixed hyperlipidemia E78.2 Hyperlipidemia type: mixed hyperlipidemia Annual physical exam Z00.00 Additional Codes MAGY-7 Assessment Billing - MAGY-7 Assessment Tool: MAGY-7 Assessment 21076 ([id number])
[2024-03-03 08:49] VITALS: BP 120/70; PULSE 76; O2SAT 97; BMI 25.8
== END 2024-03-03 09:49 | disposition home or self-care (01) ==
PROVIDERS: PCP Internal Medicine; Visit Provider Internal Medicine
DX: Z00.00 Encounter for general adult medical examination without abnormal findings (principal); E78.2 Mixed hyperlipidemia
CPT/HCPCS: 99396

== ENCOUNTER 2024-03-27 09:03 | Outpatient (AMB) | payer OTHER, SELFPAY ==
[2024-03-27 09:39] VITALS: BP 108/66; PULSE 81; TEMP 36.8; O2SAT 98; BMI 25.8
--- NOTE | 2024-03-27 09:39 | MHC.OFFWIV ---
Intake Vital Signs 03/27/24 09:39 Height 5 ft 10 in Weight 180 lb BMI 25.8 BP 108/66 Blood Pressure Location Rt brachial Position Sitting Pulse 81 Pulse Source Pulse Oximeter Temp 98.2 F Temp Source Oral Pulse Oximetry (%) 98 Oxygen Delivery Method Room Air Intake Visit Reasons: EP low leaking, back pain, bloated ?UTI Intake Note: pt c/o urine leakage, lower back pain, ? uti. Started Sunday Patient Tobacco Use Status: Never used Tobacco Allergies No Known Allergies [No Known Allergies*] Allergy (Verified 03/27/24 09:39) Do you need a note to return to daycare/school/sports/work: No HPI EP low leaking, back pain, bloated ?UTI HPI Details This note is constructed using voice recognition software. While every effort has been made to ensure accuracy, supervisor farm equipment maintenance errors may have been included. The patient is a 54 year old male who presents to the clinic today with concern for UTI. He notes that he had frequency, urgency, burning, and then he felt like he was not able to start a stream. He increased his hydration and tried cranberry juice, and then the symptoms seemed to get better. His symptoms are essentially gone, however he is left with lower abdomen pressure sensation. He reports that he moves his bowels every other day, uses Metamucil and uses Benefiber once per day. He is concerned that he has not had any lab work done in several years, and feels that his primary care provider has not been following him for things such as prostate cancer as he had not known of any PSA levels done. He denies any blood in his urine, fever, chills. [facility] Medical History Hyperlipidemia GERD (gastroesophageal reflux disease) Upper respiratory infection Gastroenteritis Annual physical exam Anxiety Adhesive capsulitis of right shoulder Seasonal allergies Dyslexia Surgical History Hx of colonoscopy History of endoscopy Family History Father NORM (obstructive sleep apnea) Mother Diabetes Family/Other Cancer Maternal Aunt Breast cancer Social History Household Members Other:: , disable learing disabilty Housing: House Unable to assess alcohol history related to: Unknown Alcohol intake: never Patient Tobacco Use Status: Never used Tobacco e-Cigarette/Vaping Use: Never Used Second Hand Smoke Exposure: No service: No Current occupational status: unemployed Current occupation: Right Handed Cognitive needs: No Hearing needs: No Vision needs: Yes Review of Systems Const All systems reviewed & are unremarkable except as noted in HPI and below Physical Exam Vital Signs: Last Vital Signs Temp 98.2 F 03/27/24 09:39 Pulse 81 03/27/24 09:39 BP 108/66 03/27/24 09:39 Pulse Ox 98 03/27/24 09:39 Oxygen Delivery Method Room Air 03/27/24 09:39 BMI result Body Mass Index 25.8 Const General: cooperative, healthy appearing, comfortable, no acute distress and alert Orientation/consciousness: patient oriented x3 Limitations: no limitations Resp Effort & Inspection: normal respiratory effort and able to speak in complete sentences Auscultation: clear to auscultation bilaterally Cardio Jugular venous distension: no JVD Palpation: normal PMI Rate: regular rate Heart sounds: S1 normal heart sound present, S2 normal heart sound present, no click, no gallops, no murmurs and no rubs GI Inspection: Yes normal to inspection Palpation (GI): Soft to palpation and nontender Percussion: Yes normal to percussion Auscultation: Hypoactive bowel sounds present Skin General skin exam: no rashes or lesions noted, elasticity normal and turgor normal Neuro General: patient oriented x3 Psych Appearance: grossly normal Mental Status: mental status grossly normal Speech and movement: Normal speech and movement present Affect: normal affect Results AMB Urinalysis, Automated UA Leukoctes 0 Juma/uL Last Edit by Erickson Hernandez CMA on 03/27/24 09:53 UA Nitrite Negative Last Edit by Erickson Hernandez CMA on 03/27/24 09:53 UA Urobilinogen 0.2 mg/dL Last Edit by Erickson Hernandez CMA on 03/27/24 09:53 UA Protein 0 mg/dL Last Edit by Erickson Hernandez CMA on 03/27/24 09:53 UA pH 6.0 Last Edit by Erickson Hernandez CMA on 03/27/24 09:53 UA Blood 0 Inocencio/uL Last Edit by Erickson Hernandez CMA on 03/27/24 09:53 UA Specific Pe Ell 1.010 Last Edit by Erickson Hernandez CMA on 03/27/24 09:53 UA Ketone Negative Last Edit by Erickson Hernandez CMA on 03/27/24 09:53 UA Bilirubin 0 mg/dL Last Edit by Erickson Hernandez CMA on 03/27/24 09:53 UA Glucose 0 mg/dL Last Edit by Erickson Hernandez CMA on 03/27/24 09:53 Results Reviewed Results Reviewed: Laboratory Last Values Urine pH (Auto) 6.0 03/27/24 09:48 Specific Pe Ell (Auto) 1.010 03/27/24 09:48 Urine Protein (Auto) 0 mg/dL 03/27/24 09:48 Glucose (UA)(Auto) 0 mg/dL 03/27/24 09:48 Urine Ketones (Auto) Negative 03/27/24 09:48 Urine Blood (Auto) 0 Inocencio/uL 03/27/24 09:48 Urine Nitrite (Auto) Negative 03/27/24 09:48 Urine Bilirubin (Auto) 0 mg/dL 03/27/24 09:48 Urine Urobilinogen (Auto) 0.2 mg/dL 03/27/24 09:48 Leukocyte Esterase (Auto) 0 Juma/uL 03/27/24 09:48 Assessment & Plan Assessment & Plan (1) Dysuria: Code(s): R30.0 - Dysuria Plan: In office rapid urinalysis dip does not appear to be UTI. Discussed with patient the labs that were obtained back in 2022 reflecting PSA checking, which was normal, these were also done in 2021 and were normal at that time. It does not appear that he is dealing with the unit tract infection, discussed given that symptoms have resolved, it would be appropriate for him to follow up with his primary care provider for ongoing monitoring and cancer screenings as is appropriate for age. We discussed this at length as patient had several questions in regards to his possibility of urinary tract infection returning, and I answered all of his questions. (2) Constipation: Code(s): K59.00 - Constipation, unspecified Qualifiers: Constipation type: unspecified constipation type Qualified Code(s): K59.00 - Constipation, unspecified Plan: Given patient has bowel movements every other day as well as hypoactive bowel sounds, and lower abdomen pressure I advised him to increase his Benefiber at least to 2 times a day, and consider further increase to 3 times a day. Advised increased hydration and ambulation to help with moving bowels. Advised patient to follow up with primary care provider with worsening symptoms or failure to resolve. Plan See above for full details and plan. Orders: Orders AMB Urinalysis Automated Today Z13.9 - Encounter for screening, unspecified Coding Level of Care Code Est Pt Level 4 (62576) Diagnoses Dysuria R30.0 Constipation, unspecified constipation type K59.00 Constipation type: unspecified constipation type Time Spent (min) 28
== END 2024-03-27 10:40 | disposition home or self-care (01) ==
PROVIDERS: PCP Internal Medicine; Visit Provider Registered Nurse
DX: R30.0 Dysuria (principal)
CPT/HCPCS: 81003; 99214